=== PATIENT | male | born 1955 | race Caucasian/White ===

== ENCOUNTER 2016-06-09 08:39 | Emergency (ER) | payer MEDICAID ==
[2016-06-09 08:45] VITALS: BP 130/90; PULSE 88; RESP 20; TEMP 97.7; O2SAT 94
--- NOTE | 2016-06-09 09:14 | EDPHY ---
H & P Time Seen by Provider: 06/09/16 08:41 HPI/ROS: CHIEF COMPLAINT: right shoulder pain HISTORY OF PRESENT ILLNESS: 60-year-old male presents complaining of right shoulder pain times 10 days. Patient was loading firewood into his truck 10 days ago when he twisted and felt pain in his right shoulder radiating the right side of his neck to his ear. Patient reports pain is worse with movement , constant and he describes as a burning sensation. Patient denies numbness or tingling in his arm, no chest pain or shortness of breath, no blurred vision, dizziness, fevers or chills. No recent cough or cold. Patient reports he has been taking aspirin without relief. REVIEW OF SYSTEMS: A comprehensive 10 point review of systems is otherwise negative aside from elements mentioned in the history of present illness. Smoking Status: Current every day smoker Physical Exam: Physical Exam Gen: Alert and Oriented, NAD HEENT: PERRL, moist mucous membranes, bilateral TMs normal NECK: no meningismus, full range of motion CV: regular rate and regular rhythm PULM: CTAB, no wheezes ABDOMEN: soft, non tender to palpation, BS present BACK: Right-sided trapezius tenderness to palpation, right-sided sternocleidomastoid tenderness to palpation. No CVA tenderness NEURO: Neurologically grossly intact EXTREMITIES: normal appearing, right arm with full active forward flexion, abduction, 5/5 strength, 2+ radial pulses SKIN: no rash or break in skin on exposed skin PSYCH: answers questions appropriately. Constitutional: Initial Vital Signs Temperature (C) 36.5 C 06/09/16 08:42 Heart Rate 88 06/09/16 08:42 Respiratory Rate 20 06/09/16 08:42 Blood Pressure 130/90 H 06/09/16 08:42 O2 Sat (%) 94 06/09/16 08:42 O2 Delivery Mode Room Air Allergies/Adverse Reactions: No Known Allergies Allergy (Verified 06/09/16 08:41) Home Medications: Medication Instructions Recorded Advair 06/21/13 Lisinopril 06/21/13 Spiriva Inhaler (RX) 06/21/13 Methocarbamol [Robaxin-750] 750 - 1,500 mg PO QID PRN #20 06/09/16 tablet MDM/Departure - Depart Disposition: Home, Routine, Self-Care Clinical Impression: Trapezius muscle spasm, Sternocleidomastoid muscle tenderness Condition: Good Instructions: Muscle Spasm (ED) Additional Instructions: Rest, ice or heat whichever feels better, elevate, take 600mg of ibuprofen every 8 hours with food for 3-5 days as needed for pain and swelling. Take methocarbamol as prescribed as needed for muscle spasms. Return to the emergency department for any numbness, tingling, discoloration of you limb or other concerns. Follow-up with your primary care doctor in 3-5 days for symptoms that are not improving. Prescriptions: Methocarbamol [Robaxin-750] 750 - 1,500 mg PO QID PRN #20 tablet PRN Reason: Spasms Referrals: Beck Romero MD [Primary Care Provider] - As per Instructions
== END 2016-06-09 09:21 | disposition home or self-care (01) ==
DX: M62.838 Other muscle spasm (principal); M54.2 Cervicalgia; F17.200 Nicotine dependence, unspecified, uncomplicated

== ENCOUNTER 2016-09-11 14:14 | Inpatient (IN) | payer MEDICAID ==
--- NOTE | 2016-09-11 14:39 | EDPHY ---
H & P Time Seen by Provider: 09/11/16 14:39 HPI/ROS: CHIEF COMPLAINT: Right chest pain HISTORY OF PRESENT ILLNESS: This 61-year-old man fell last night at 8:00 p.m.. He tripped in the kitchen because it was dark and landed on his right side on his wood stove. He presents today with right-sided chest pain started immediately after the fall. It does not radiate but is much worse with breathing. It is associated with shortness of breath and the pain is moderate to severe. REVIEW OF SYSTEMS: Eye: no change in vision ENT: no sore throat Cardiac: HPI, no syncope Pulmonary: HPI, chronic cough, unchanged Abdomen: no vomiting, diarrhea, abdominal pain Musculoskeletal: no back pain or neck pain Skin: Right arm abrasion Neuro: no headache Constitutional: no fever : no urinary symptoms A comprehensive 10 point review of systems is otherwise negative aside from elements mentioned in the history of present illness. PAST MEDICAL HISTORY: Includes COPD and hypertension, tonsillectomy. Tetanus up-to-date. Social history: Tobacco smoker, last used yesterday. General Appearance: Alert and conversant, cooperative. Eyes: No scleral icterus. ENT, Mouth: Normal mucous membranes. Respiratory: Patient is splinting with decreased breath sounds on the right side and palpable crepitus in the mid axillary line from the armpit down to the nipple line. Cardiovascular: Regular rate and rhythm. Gastrointestinal: Abdomen is soft and non tender. Specifically nontender over the liver. Neurological: Alert and oriented x3. Normally conversant. Face symmetric, normal movement and sensation in all extremities. Skin: Right arm abrasion but no lacerations. Musculoskeletal: No peripheral edema and no joint swelling. Psychiatric: Not agitated. Emergency Department course/MDM: Clinical suspicion high for pneumothorax. Oxygen saturation noted at 81%. He is immediately placed on supplemental oxygen nasal cannula to get him into the low 90s. Plan for fentanyl 100 mcg IV, chest x-ray. 1535: Sodium noted at 1:18 a.m., admit to trauma service, admitting trauma surgeon will arrange medical consult per Elmo. Admitting surgeon aware right lung consolidation, possible mass versus pulmonary contusion. Smoking Status: Current every day smoker Constitutional: Initial Vital Signs Temperature (C) 36.4 C 09/11/16 14:15 Heart Rate 97 09/11/16 14:15 Respiratory Rate 22 H 09/11/16 14:15 Blood Pressure 146/93 H 09/11/16 14:15 O2 Sat (%) 81 L 09/11/16 14:15 O2 Delivery Mode Nasal Cannula O2 (L/minute) 3 Allergies/Adverse Reactions: No Known Allergies Allergy (Verified 09/11/16 14:23) Home Medications: Medication Instructions Recorded Albuterol [Proventil Inhaler HFA 1 - 2 puffs IH Q4H PRN 09/11/16 (*)] Fluticasone/Salmeter 250/50Mcg 1 puffs IH BID 09/11/16 [Advair 250/50 (*)] Ibuprofen [Motrin (*)] 200 - 400 mg PO DAILY PRN 09/11/16 Lisinopril/Hctz 20/12.5MG 1 ea PO DAILY 09/11/16 [Zestoretic/Prinzide 20/12.5MG (*)] Tiotropium Inhaler [Spiriva 18 mcg IH DAILY 09/11/16 Handihaler] Medical Decision Making - Diagnostics Imaging Results: Imaging Impressions Chest X-Ray 09/11/16 14:34 Impression: Multiple displaced right rib fractures 4 through 9, as above. Small pneumothorax and small right pleural effusion. Subcutaneous emphysema. Probable pulmonary contusion right lower lobe. Results discussed with Dr. Shoaib Flor at 1500 hours on September 11, 2016. Chest x-ray discussed with Milady and personally interpreted shows fractures of ribs 4-9 on the right side with large volume subcutaneous air and pulmonary contusion. Imaging: Discussed imaging studies w/ commutator operator Radiologist Differential Diagnosis: Differential for right-sided chest trauma considered including but not limited to pneumothorax, hemothorax, rib fracture, chest wall contusion. Consult/Admit Bed Type: [place] [address] Critical Care Time: Critical care time spent by me, Dr. Flor, exclusively with the care of this patient was 35 minutes, exclusive of PA or LOG PEELER time and exclusive of separate procedures. The organ system at risk was pulmonary and I ordered supplementary oxygen, diagnostic imaging, discussion with trauma surgeon, IV pain medication; to stabilize the patient and prevent worsening of the patient's condition. - Data Points Laboratory Results: Laboratory Results 09/11/16 14:35 09/11/16 14:35 09/11/16 09/11/16 14:35 14:35 WBC 8.39 10^3/uL 10^3/uL (3.80-9.50) RBC 5.14 10^6/uL 10^6/uL (4.40-6.38) Hgb 16.8 g/dL g/dL (13.7-17.5) Hct 46.0 % % (40.0-51.0) MCV 89.5 fL fL (81.5-99.8) MCH 32.7 pg pg (27.9-34.1) MCHC 36.5 g/dL g/dL (32.4-36.7) RDW 12.9 % % (11.5-15.2) Plt Count 168 10^3/uL 10^3/uL (150-400) MPV 8.7 fL fL (8.7-11.7) Neut % (Auto) 84.9 % H % (39.3-74.2) Lymph % (Auto) 8.2 % L % (15.0-45.0) [place] % (Auto) 6.0 % % (4.5-13.0) Eos % (Auto) 0.0 % L % (0.6-7.6) Baso % (Auto) 0.1 % L % (0.3-1.7) Nucleat RBC Rel Count 0.0 % % (0.0-0.2) Absolute Neuts (auto) 7.12 10^3/uL H 10^3/uL (1.70-6.50) Absolute Lymphs (auto) 0.69 10^3/uL L 10^3/uL (1.00-3.00) Absolute Monos (auto) 0.50 10^3/uL 10^3/uL (0.30-0.80) Absolute Eos (auto) 0.00 10^3/uL L 10^3/uL (0.03-0.40) Absolute Basos (auto) 0.01 10^3/uL L 10^3/uL (0.02-0.10) Absolute Nucleated RBC 0.00 10^3/uL 10^3/uL (0-0.01) Immature Gran % 0.8 % % (0.0-1.1) Immature Gran # 0.07 10^3/uL 10^3/uL (0.00-0.10) Sodium 118 mEq/L L* mEq/L (134-144) Potassium 4.8 mEq/L mEq/L (3.5-5.2) Chloride 80 mEq/L L mEq/L (97-110) Carbon Dioxide 26 mEq/l mEq/l (22-31) Anion Gap 12 mEq/L mEq/L (8-16) BUN 17 mg/dL mg/dL (7-23) Creatinine 0.8 mg/dL mg/dL (0.7-1.3) Estimated GFR > 60 Glucose 94 mg/dL mg/dL (70-100) Calcium 9.7 mg/dL mg/dL (8.5-10.4) Medications Given: Discontinued Medications Fentanyl (Sublimaze) 100 mcg IVP EDNOW ONE Stop: 09/11/16 14:49 Last Admin: 09/11/16 15:00 Dose: 100 mcg Ondansetron HCl (Zofran) 4 mg IVP EDNOW ONE Stop: 09/11/16 14:49 Last Admin: 09/11/16 15:00 Dose: 4 mg Departure - Departure Disposition: [facility] [place] [facility] Acute Clinical Impression: Hyponatremia Ribs, multiple fractures Qualifiers: Encounter type: initial encounter Fracture type: closed Laterality: right Qualified Code(s): S22.41XA - Multiple fractures of ribs, right side, initial encounter for closed fracture Right pulmonary contusion Qualifiers: Encounter type: initial encounter Qualified Code(s): S27.321A - Contusion of lung, unilateral, initial encounter Condition: Serious
[2016-09-11] MEDS ORDERED: fentaNYL 100 MCG/2 ML INJ IVP ONE (14:48)
[2016-09-11] MEDS ORDERED: ONDANSETRON 4 MG/2 ML VIAL IVP ONE (14:48)
[2016-09-11 14:52] LABS: % IMMATURE GRANULYOCYTES 0.8 % (0.0-1.1); ABSOLUTE IMMATURE GRANULOCYTES 0.07 10^3/uL (0.00-0.10); ADD DIFF? NO; ADD MORPH? NO; ADD SCAN? NO; ATYPICAL LYMPHOCYTE FLAG 0 (0-99); FRAGMENT RBC FLAG 0 (0-99); HEMOGLOBIN 16.8 g/dL (13.7-17.5); LEFT SHIFT FLG 0 (0-99); LIPEMIA HEMOLYSIS FLAG 90 (0-99); MEAN CELL HEMOGLOBIN 32.7 pg (27.9-34.1); MEAN CELL HEMOGLOBIN CONCENTR. 36.5 g/dL (32.4-36.7); MEAN CELL VOLUME 89.5 fL (81.5-99.8); MEAN PLATELET VOLUME 8.7 fL (8.7-11.7); PLATELET CLUMPS FLAG 10 (0-99); PLATELET COUNT 168 10^3/uL (150-400); RED BLOOD CELL COUNT 5.14 10^6/uL (4.40-6.38); RED CELL DISTRIBUTION WIDTH 12.9 % (11.5-15.2)
[2016-09-11 15:22] LABS: ANION GAP 12 mEq/L (8-16); CALCIUM 9.7 mg/dL (8.5-10.4); CARBON DIOXIDE 26 mEq/l (22-31); CHLORIDE 80 mEq/L (97-110); CREATININE 0.8 mg/dL (0.7-1.3); GLOMERULAR FILTRATION RATE > 60; GLUCOSE 94 mg/dL (70-100); POTASSIUM 4.8 mEq/L (3.5-5.2)
[2016-09-11 15:27] LABS: SODIUM 118 mEq/L (134-144)
[2016-09-11] MEDS ORDERED: ONDANSETRON 4 MG/2 ML VIAL IVP PRN (15:42)
[2016-09-11] MEDS ORDERED: ONDANSETRON DISINTEGRATING 4 MG TAB PO PRN (15:42)
--- NOTE | 2016-09-11 15:42 | PDCONSULT ---
Head Butler Note: Trauma consult requested by Dr. Flor. 61 y/o male fell at home last night and presented to the ED this afternoon with hypoxemia and mulitple rib fractures. He reports tripping and falling at home, landing on his right lateral chest against a cast iron stove. He denies LOC and slept off and on last night until 11:30 when he was able to get help from a neighbor who brought him to the ED. He was noted to be hypoxemic with O2 sats of 81 % He was seen and evaluated with plain films of the chest and was found to have multiple right rib fractures and a probable pulmonary contusion. PMH: heavy tobacco use >40 years meds: Albuterol inh, Spiriva inh NKDA SH: lives in a cabin in [place] ROS: denies LOC, headache, visual disturbances, weakness/paresthesias + right chest pain/ denies hemoptysis FH: NC PE: thin male appearing older than his stated age HEENT: NCAT, P2RRLA, TM-clear R/impacted cerumen L trachea midline, no midline cervical or thoracic spine tenderness chest: right lateral subcut crepitance CVS: RRR w/out murmur, rub abd: soft/non-tender pelvis: stable to A/L compression rectal: not performed ext: FROM without tenderness or deformity neuro: Ox3, no focal motor/sensory defecits, gait testing not performed CXR: multiple fractures right lateral ribs 4-8 with subcutaneous air/small effusion/minimal pneumothorax RLL density c/w contusion, but cannot exclude neoplasm Na+ 118 Imp: s/p fall with right lateral chest trauma 20 hours prior to arrival multiple right rib fractures with hemo-pneumothorax hyponatremia RLL lung mass vs. contusion hx heavy tobacco use Rec: CT thorax with contrast Admit to the Trauma Service with Hospitalist consult monitor for worsening pneumo/may need closed tube thoracostomy consider percutaneous lung bx. if CT confirms mass RLL IV NS/central pulse oximetry S MD Elmo, FACS
[2016-09-11] MEDS ORDERED: HYDROmorphONE/DILAUDID 1 MG/ML SYR ONE (15:55)
[2016-09-11] MEDS ORDERED: ALBUTEROL 60 PUFFS/8 GM MDI IH PRN (15:56)
[2016-09-11] MEDS ORDERED: IOPAMIDOL (ISOVUE-300) 100 ML BTL IV ONE (15:57)
[2016-09-11] MEDS: HYDROmorphONE/DILAUDID 1 MG/ML SYR IVP PRN (16:00)
[2016-09-11] MEDS: NS 1,000 ML IV SCH (16:00)
[2016-09-11 16:38] LABS: ALANINE AMINOTRANSFERASE 59 IU/L (21-72); ALBUMIN 4.4 g/dL (3.5-5.0); ALKALINE PHOSPHATASE 74 IU/L (38-126); ANION GAP 9 mEq/L (8-16); ASPARTATE AMINOTRANSFERASE 101 IU/L (17-59); BILIRUBIN,TOTAL 1.7 mg/dL (0.1-1.4); CALCIUM 9.6 mg/dL (8.5-10.4); CARBON DIOXIDE 28 mEq/l (22-31); CHLORIDE 82 mEq/L (97-110); CREATININE 0.8 mg/dL (0.7-1.3); GLOMERULAR FILTRATION RATE > 60; GLUCOSE 98 mg/dL (70-100); POTASSIUM 4.7 mEq/L (3.5-5.2); TOTAL PROTEIN 7.4 g/dL (6.3-8.2)
[2016-09-11 16:43] LABS: SODIUM 119 mEq/L (134-144)
--- NOTE | 2016-09-11 18:10 | GCON ---
[f rep st] CONSULTATION HOSPITALIST CONSULTATION DATE OF CONSULTATION: 09/11/2016 REFERRING PHYSICIAN: Jono Borrego MD REASON FOR CONSULTATION: Hyponatremia. HISTORY OF PRESENT ILLNESS: This is a 61-year-old male who lives in a cabin [place] [facility] and sustained a mechanical fall last night, where he tripped and landed on the edge of a stove with his right chest. He came to the emergency department today due to persistent pain over his right chest. It is described as 8 to 10 out of 10, sharp pain over his right ribs. It is worse with coughing and taking deep breaths. The patient denies any past history of hyponatremia. He denies any copious fluid ingestion. He endorses a regular diet up until today, when he just did not have an appetite. He denies any fevers, chills, or weight loss. He has a 40+ pack-year smoking history and tells me he quit smoking today. PAST MEDICAL HISTORY: COPD and hypertension. PAST SURGICAL HISTORY: Denies. MEDICATIONS: Spiriva, lisinopril/hydrochlorothiazide, Motrin, Advair, albuterol. ALLERGIES: No known drug allergies. SOCIAL HISTORY: The patient lives independently. He has a 40+ pack-year smoking history. He denies any alcohol or illicit drug use. FAMILY HISTORY: Reviewed and noncontributory. REVIEW OF SYSTEMS: Comprehensive 10-point review of systems was done and is negative, except for as mentioned in the HPI. PHYSICAL EXAM: VITAL SIGNS: Blood pressure 105/76, pulse of 89, respiratory rate 20, O2 sat 97% on 3 L, temperature afebrile. GENERAL: No acute distress. HEENT: Head: Normocephalic, atraumatic. Eyes: PERRLA. Sclerae anicteric. Mouth: Moist mucous membranes. NECK: Supple. No lymphadenopathy. CARDIOVASCULAR: S1, S2. No JVD. No lower extremity edema. PULMONARY: Lungs are clear with diminished breath sounds bilaterally. There are no wheezes or rales. CHEST: There is tenderness to palpation over the right lateral chest at the midaxillary line. There is also some crepitus over the right lateral chest. ABDOMEN: Soft, nontender, nondistended. No guarding or rebound tenderness. Normoactive bowel sounds. EXTREMITIES: No clubbing or cyanosis. NEURO: Cranial nerves 2-12 grossly intact. No focal motor or sensory deficits. SKIN: Clear. No rashes. LABORATORY DATA: WBC is 8.39, hemoglobin 16.8, hematocrit 46, platelets 168. Sodium 118, potassium 4.8, chloride 80, CO2 26, BUN 17, creatinine 0.8, glucose 94. Repeat chemistry is currently pending. Chest x-ray, which I visualized and personally interpreted, revealed multiple displaced rib fractures as well as some subcutaneous emphysema with opacification in the right lower lobe. CT has been done and is currently pending. Preliminary read by me shows suspicious opacity in the right lower lobe as well as a pneumothorax. ASSESSMENT AND PLAN: This is a 61-year-old male status post slip and fall who has been admitted by the trauma service due to multiple rib fractures, who I have been asked to see due to: 1. Hyponatremia that appears to be asymptomatic in a patient who appears to be euvolemic to hypovolemic with possible malignancy in the right lower lobe. Plan : The patient will be admitted to the medical-surgical floor, where we will carefully monitor his serum sodium and place him on seizure precautions. We will obtain a urine sodium and urine osmolality as well as a TSH. For now, he will be fluid restricted to 1.5 L per day. Will hold home dose of HCTZ. 2. Suspicious lesion in the right lower lobe in the setting of long-time tobacco use, which could represent a pulmonary contusion from his recent injury versus malignancy. Plan: For now, we will defer a biopsy. This should be discussed with the patient prior to discharge. I have not yet notified the patient of this finding. 3. Tobacco abuse. Plan: We will order nicotine replacement while in the hospital. 4. History of hypertension Plan: Hold HCTZ and continue lisinopril Thank you for allowing me to participate in the care of this patient. Hospital Medicine will continue to follow along with you. /[id number]/MODL MTDD
[2016-09-11] MEDS: HYDROCODONE/APAP 5/325 TAB PO PRN (19:23)
[2016-09-11] MEDS: ALBUTEROL 60 PUFFS/8 GM MDI IH PRN ×2 (19:27→23:31)
[2016-09-11] MEDS: FLUTICASONE/SALMETER 250/50MCG DISKUS IH SCH (19:27)
[2016-09-11] MEDS: IBUPROFEN 600 MG TAB PO SCH (21:37)
[2016-09-12] MEDS: HYDROCODONE/APAP 5/325 TAB PO PRN ×4 (01:26→22:02)
[2016-09-12 01:49] LABS: ANION GAP 4 mEq/L (8-16); CALCIUM 8.7 mg/dL (8.5-10.4); CARBON DIOXIDE 28 mEq/l (22-31); CHLORIDE 88 mEq/L (97-110); CREATININE 0.8 mg/dL (0.7-1.3); GLOMERULAR FILTRATION RATE > 60; GLUCOSE 117 mg/dL (70-100); POTASSIUM 4.5 mEq/L (3.5-5.2); SODIUM 120 mEq/L (134-144)
[2016-09-12] MEDS: NS 1,000 ML IV SCH ×3 (02:16→22:07)
[2016-09-12] MEDS: IBUPROFEN 600 MG TAB PO SCH ×3 (06:04→21:07)
[2016-09-12] MEDS ORDERED: IBUPROFEN 600 MG TAB PO PRN (08:16)
[2016-09-12] MEDS: ALBUTEROL 60 PUFFS/8 GM MDI IH PRN (08:35)
[2016-09-12] MEDS: FLUTICASONE/SALMETER 250/50MCG DISKUS IH SCH ×2 (08:35→22:14)
[2016-09-12] MEDS: TIOTROPIUM INHALER 18 MCG/DOSE 5 DOSE/MDI IH SCH (08:35)
[2016-09-12 08:45] LABS: ANION GAP 6 mEq/L (8-16); CALCIUM 8.8 mg/dL (8.5-10.4); CARBON DIOXIDE 27 mEq/l (22-31); CHLORIDE 89 mEq/L (97-110); CREATININE 0.9 mg/dL (0.7-1.3); GLOMERULAR FILTRATION RATE > 60; GLUCOSE 105 mg/dL (70-100); POTASSIUM 4.4 mEq/L (3.5-5.2); SODIUM 122 mEq/L (134-144)
[2016-09-12] MEDS ORDERED: LISINOPRIL 20 MG TAB PO SCH (09:00)
[2016-09-12] MEDS: ENOXAPARIN 40 MG/0.4 ML SYR SC SCH (09:04)
[2016-09-12] MEDS: CYCLOBENZAPRINE 10 MG TAB PO SCH ×3 (09:04→21:07)
--- NOTE | 2016-09-12 09:05 | TRAUMAPN ---
- Problem/Surgery Performed (1) Subcutaneous emphysema due to trauma Qualifiers: Encounter type: E Assessment/Plan: 61yo M s/p mech fall c R sided rib fx c associated contusion vs mass and hyponatremia Neuro: REESE, pain controlled but not great. Have increased dosage of ibuprofen, added muscle relaxer. Pulm: Has weaned down to 3L NC from 4. CXR this AM pending. Has R sided crepitus to palpation, expiratory wheezes present with poor inspiratory effort overall. Splints with coughing which is why pain control has been altered. Needs aggressive pulm toilet which I discussed again this AM. Home inhalers ordered. CV: HDS Abd: soft, nondistended, tolerating reg diet Renal: voiding, UOP appropriate, Cr stable Lytes: Na 120 from 119, on NS. Appreciate IM assistance with management Dispo: pain control, may need tube if CXR looks worse. Slowly correcting hypoNa - Subjective: Feeling well, still having significant R sided chest pain Objective: Vital Signs Temp Pulse Resp BP Pulse Ox 36.7 C 78 14 118/80 95 09/12/16 07:20 09/12/16 08:48 09/12/16 08:48 09/12/16 07:20 09/12/16 08:48 Laboratory Results 09/12/16 08:23 09/11/16 09/12/16 09/13/16 05:59 05:59 05:59 Intake Total 2830 Output Total 300 200 Balance 2530 -200 - C-Spine Clearance Cervical Spine Cleared: Yes Physical Exam - Physical Exam General Appearance: alert, no apparent distress EENT: PERRL/EOMI Neck: non-tender, full range of motion Respiratory: other (R sided crepitus, expiratory wheezes with poor effort. ) Cardiac/Chest: normal peripheral pulses, regular rate, rhythm Abdomen: normal bowel sounds, non-tender Extremities: normal range of motion, non-tender Neuro/Psych: no motor/sensory deficits, alert
[2016-09-12 12:34] LABS: % IMMATURE GRANULYOCYTES 0.6 % (0.0-1.1); ABSOLUTE IMMATURE GRANULOCYTES 0.04 10^3/uL (0.00-0.10); ADD DIFF? NO; ADD MORPH? NO; ADD SCAN? NO; ATYPICAL LYMPHOCYTE FLAG 0 (0-99); FRAGMENT RBC FLAG 0 (0-99); HEMATOCRIT 40.8 % (40.0-51.0); HEMOGLOBIN 14.9 g/dL (13.7-17.5); LEFT SHIFT FLG 0 (0-99); LIPEMIA HEMOLYSIS FLAG 90 (0-99); MEAN CELL HEMOGLOBIN 32.7 pg (27.9-34.1); MEAN CELL HEMOGLOBIN CONCENTR. 36.5 g/dL (32.4-36.7); MEAN CELL VOLUME 89.5 fL (81.5-99.8); MEAN PLATELET VOLUME 8.8 fL (8.7-11.7); PLATELET CLUMPS FLAG 0 (0-99); PLATELET COUNT 120 10^3/uL (150-400); RED BLOOD CELL COUNT 4.56 10^6/uL (4.40-6.38); RED CELL DISTRIBUTION WIDTH 13.1 % (11.5-15.2)
[2016-09-12 12:58] LABS: CALCIUM 8.5 mg/dL (8.5-10.4); CARBON DIOXIDE 28 mEq/l (22-31); CHLORIDE 89 mEq/L (97-110); CREATININE 0.8 mg/dL (0.7-1.3); GLOMERULAR FILTRATION RATE > 60; GLUCOSE 136 mg/dL (70-100); SODIUM 120 mEq/L (134-144)
[2016-09-12 13:14] LABS: ANION GAP 3 mEq/L (8-16); POTASSIUM 4.3 mEq/L (3.5-5.2)
[2016-09-12] MEDS ORDERED: LORazepam 2 MG/ML INJ IVP PRN (16:20)
[2016-09-12] MEDS ORDERED: LORazepam 1 MG TAB PO PRN (16:20)
--- NOTE | 2016-09-12 16:51 | HOSPPROG ---
Hospitalist Progress Note Assessment/Plan: Assessment: 61-year-old male presents with acute traumatic fall resulting in right-sided rib fractures, right hydro pneumothorax right lung contusion verses new mass complicated by acute hyponatremia Plan: 1. Hyponatremia. Acute, severe, unclear baseline, most likely secondary to hypovolemia with a urine sodium level of 6, serum chloride level of 89, no appreciable improvement by holding IV fluids and fluid restriction - patient's baseline intake this is poor, his diet of solid foods is low, drinks a combination of coffee, glacier water, beer a daily basis, and he is also on an ELMER-inhibitor/thiazide diuretic, most likely resulting in hypovolemia on presentation - discussed with RN, patient has been off of IV fluids most of the afternoon, will reinitiate normal saline at 150 cc/hour and repeat his serum sodium level at 8:00 p.m. -if serum sodium level is increasing at safe rate, would recommend continuing normal saline 150 an hour - his serum sodium level is increasing at an unsafe rate, would recommend adjusting fluids to D5 half-normal saline and continuing it to repeat serum sodium levels throughout the night - if his serum sodium level is decreasing, would recommend discontinuing IV fluids, placing on a 1 L per day fluid restriction, repeating serum sodium level in a.m. and rechecking a urine sodium level tomorrow 2. Possible new lung mass. Repeat chest x-ray demonstrates a persistent area of possible lung mass in the right lower lobe or contusion - discussed with patient, advised him that we should perform chest CT once his traumatic hydro pneumothorax has completely stabilized, prior to discharge - patient is in agreement that he would like for this to be pursued, we did not discuss potential biopsy given that it is not entirely clear whether patient does have a mass 3. Rib fracture. Acute, traumatic, right-sided, pain control is currently adequate per patient Trauma Service will remain the primary service for this patient, hospital Medicine will continue to consult for the issues outlined above. Subjective: Counseled the patient and his friends regarding his chest imaging, explanation of findings, recommendations for follow-up chest CT Objective: Vital Signs Temp Pulse Resp BP Pulse Ox 36.5 C 81 18 113/79 96 09/12/16 11:10 09/12/16 11:10 09/12/16 11:10 09/12/16 11:10 09/12/16 14:09 Laboratory Results 09/12/16 12:20 09/12/16 12:20 09/11/16 09/12/16 09/13/16 05:59 05:59 05:59 Intake Total 2830 Output Total 300 400 Balance 2530 -400 - Time Spent With Patient Time Spent with Patient: greater than 35 minutes Time Spent with Patient: Greater than 35 minutes spent on this patients care, greater than 50% of time spent counseling, educating, and coordinating care regarding the above mentioned plan. - Physical Exam Constitutional: no apparent distress, not in pain, other ( aged.), No uncomfortable Cardiovascular: regular rate and rhythym, no murmur, rub, or gallop Respiratory: reduced air movement ( Right base), expiratory wheeze ( late on expiration), No bronchial breath sounds, No respiratory distress Gastrointestinal: normoactive bowel sounds, soft, non-tender abdomen, no palpable masses Neurologic: AAOx3 Psychiatric: interacting appropriately, not anxious, not encephalopathic, thought process linear ICD10 Worksheet Patient Problems: Problems Problem Status Onset Ribs, multiple fractures Acute Right pulmonary contusion Acute Hyponatremia Acute Subcutaneous emphysema due to trauma Acute
[2016-09-12 21:25] LABS: ANION GAP 3 mEq/L (8-16); CALCIUM 8.3 mg/dL (8.5-10.4); CARBON DIOXIDE 29 mEq/l (22-31); CHLORIDE 90 mEq/L (97-110); CREATININE 0.7 mg/dL (0.7-1.3); GLOMERULAR FILTRATION RATE > 60; GLUCOSE 94 mg/dL (70-100); POTASSIUM 4.6 mEq/L (3.5-5.2); SODIUM 122 mEq/L (134-144)
[2016-09-13] MEDS: IBUPROFEN 600 MG TAB PO SCH ×3 (04:46→21:15)
[2016-09-13] MEDS: HYDROCODONE/APAP 5/325 TAB PO PRN ×2 (04:46→11:22)
[2016-09-13] MEDS: HYDROmorphONE/DILAUDID 1 MG/ML SYR IVP PRN ×2 (04:51→09:24)
[2016-09-13 05:23] LABS: % IMMATURE GRANULYOCYTES 0.4 % (0.0-1.1); ABSOLUTE IMMATURE GRANULOCYTES 0.02 10^3/uL (0.00-0.10); ADD DIFF? NO; ADD MORPH? NO; ADD SCAN? NO; ATYPICAL LYMPHOCYTE FLAG 0 (0-99); FRAGMENT RBC FLAG 0 (0-99); HEMOGLOBIN 12.8 g/dL (13.7-17.5); LEFT SHIFT FLG 0 (0-99); LIPEMIA HEMOLYSIS FLAG 90 (0-99); MEAN CELL HEMOGLOBIN 32.1 pg (27.9-34.1); MEAN CELL HEMOGLOBIN CONCENTR. 34.6 g/dL (32.4-36.7); MEAN CELL VOLUME 92.7 fL (81.5-99.8); PLATELET CLUMPS FLAG 0 (0-99); PLATELET COUNT 121 10^3/uL (150-400); RED BLOOD CELL COUNT 3.99 10^6/uL (4.40-6.38); RED CELL DISTRIBUTION WIDTH 13.3 % (11.5-15.2)
[2016-09-13 06:07] LABS: ANION GAP 3 mEq/L (8-16); CALCIUM 8.1 mg/dL (8.5-10.4); CARBON DIOXIDE 27 mEq/l (22-31); CHLORIDE 94 mEq/L (97-110); CREATININE 0.6 mg/dL (0.7-1.3); GLOMERULAR FILTRATION RATE > 60; GLUCOSE 79 mg/dL (70-100); MAGNESIUM 1.7 mg/dL (1.6-2.3); POTASSIUM 4.5 mEq/L (3.5-5.2); SODIUM 124 mEq/L (134-144)
[2016-09-13] MEDS: TIOTROPIUM INHALER 18 MCG/DOSE 5 DOSE/MDI IH SCH (08:53)
[2016-09-13] MEDS: FLUTICASONE/SALMETER 250/50MCG DISKUS IH SCH ×2 (08:54→21:26)
[2016-09-13] MEDS: CYCLOBENZAPRINE 10 MG TAB PO SCH ×3 (09:29→21:14)
[2016-09-13] MEDS: ENOXAPARIN 40 MG/0.4 ML SYR SC SCH (09:29)
--- NOTE | 2016-09-13 10:38 | SOAPPROG ---
SOAP Progress Note Assessment/Plan: Assessment: 61yo male s/p fall resulting in right sided rib fractures mild right sided CP, walked around this AM, unable to return home as lives alone in [place] PE awake alert, Right basilar crackles Ht RRR CXR reviewed -- small [id number], lung mass Plan: emphasized importance of follow up for lung mass, Dr Carver explained to patient ok for D/C to SNF from trauma standpoint, please call me if trauma is admitting and ok with medicine for D/C then I will d/c patient to SNF [facility] [phone] 09/13/16 10:32 Objective: Vital Signs Temp Pulse Resp BP Pulse Ox 36.4 C 91 14 127/78 H 94 09/13/16 08:00 09/13/16 08:57 09/13/16 08:57 09/13/16 08:00 09/13/16 08:57 Laboratory Results 09/13/16 05:05 09/13/16 05:05 09/12/16 09/13/16 09/14/16 05:59 05:59 05:59 Intake Total 2830 3100 400 Output Total 300 950 230 Balance 2530 2150 170 ICD10 Worksheet Patient Problems: Problems Problem Status Onset Hyponatremia Acute Ribs, multiple fractures Acute Right pulmonary contusion Acute Subcutaneous emphysema due to trauma Acute
[2016-09-13] MEDS: ALBUTEROL 60 PUFFS/8 GM MDI IH PRN ×2 (11:19→21:26)
[2016-09-13] MEDS: NS 1,000 ML IV SCH ×2 (11:20→21:15)
--- NOTE | 2016-09-13 12:24 | HOSPPROG ---
Hospitalist Progress Note Assessment/Plan: # hyponatremia - seems combination of SIADH and hypovolemia - Q8 Na's today # possible R lung mass - needs close outpt f/u # acute R sided rib fx's - pain control; cont IS, flutter valve # anemia - lower today, follow # acute hypoxic resp failure d/t rib fx's, splinting # COPD, chronic ## CXR personally reviewed chart reviewed Subjective: ongoing R sided CP Objective: Vital Signs Temp Pulse Resp BP Pulse Ox 36.4 C 83 20 123/75 H 95 09/13/16 11:07 09/13/16 11:07 09/13/16 11:07 09/13/16 11:07 09/13/16 11:07 Laboratory Results 09/13/16 05:05 09/13/16 05:05 09/12/16 09/13/16 09/14/16 05:59 05:59 05:59 Intake Total 2830 3100 700 Output Total 300 950 230 Balance 2530 2150 470 - Physical Exam Constitutional: unkempt Cardiovascular: regular rate and rhythym, no murmur, rub, or gallop Respiratory: no respiratory distress, other (decreased R sided BS, no rales/ rhonchi; R sided crepitus) Gastrointestinal: normoactive bowel sounds, soft, non-tender abdomen ICD10 Worksheet Patient Problems: Problems Problem Status Onset Ribs, multiple fractures Acute Right pulmonary contusion Acute Hyponatremia Acute Subcutaneous emphysema due to trauma Acute
[2016-09-13 13:33] LABS: ANION GAP 3 mEq/L (8-16); CALCIUM 8.3 mg/dL (8.5-10.4); CARBON DIOXIDE 26 mEq/l (22-31); CHLORIDE 95 mEq/L (97-110); CREATININE 0.6 mg/dL (0.7-1.3); GLOMERULAR FILTRATION RATE > 60; GLUCOSE 84 mg/dL (70-100); POTASSIUM 4.9 mEq/L (3.5-5.2); SODIUM 124 mEq/L (134-144)
[2016-09-13] MEDS: LIDOCAINE 5% 1 EA PATCH TD SCH (13:38)
[2016-09-13] MEDS: ACETAMINOPHEN 500 MG TAB PO SCH ×2 (13:40→21:14)
--- NOTE | 2016-09-13 16:42 | SOAPPROG ---
SOAP Progress Note Assessment/Plan: Assessment: 61-year-old male with the multiple rib fractures after a fall / also a right lower lobe lung mass suspicious for carcinoma Chest x-ray today suggest is somewhat enlarging right pleural effusion which could be consistent with the hemothorax risks and options fully discussed with the patient Plan: follow-up chest x-ray in the a.m. / possible need for drainage if increasing 09/13/16 16:40 Objective: Vital Signs Temp Pulse Resp BP Pulse Ox 36.4 C 83 20 123/75 H 87 L 09/13/16 11:07 09/13/16 11:07 09/13/16 11:07 09/13/16 11:07 09/13/16 11:43 Laboratory Results 09/13/16 05:05 09/13/16 12:30 09/12/16 09/13/16 09/14/16 05:59 05:59 05:59 Intake Total 2830 3100 700 Output Total 300 950 470 Balance 2530 2150 230 ICD10 Worksheet Patient Problems: Problems Problem Status Onset Hyponatremia Acute Ribs, multiple fractures Acute Right pulmonary contusion Acute Subcutaneous emphysema due to trauma Acute
[2016-09-13] MEDS: oxyCODONE IR 5 MG TAB PO PRN ×2 (18:11→23:05)
[2016-09-13 18:27] LABS: ANION GAP 3 mEq/L (8-16); CALCIUM 8.1 mg/dL (8.5-10.4); CARBON DIOXIDE 27 mEq/l (22-31); CHLORIDE 95 mEq/L (97-110); CREATININE 0.6 mg/dL (0.7-1.3); GLOMERULAR FILTRATION RATE > 60; GLUCOSE 80 mg/dL (70-100); POTASSIUM 4.7 mEq/L (3.5-5.2); SODIUM 125 mEq/L (134-144)
[2016-09-13] MEDS: PATCH REMOVAL 1 EA PATCH TD SCH (21:14)
[2016-09-14] MEDS: NS 1,000 ML IV SCH ×3 (03:13→21:12)
[2016-09-14] MEDS: oxyCODONE IR 5 MG TAB PO PRN ×3 (03:13→15:39)
[2016-09-14] MEDS: ACETAMINOPHEN 500 MG TAB PO SCH ×3 (05:45→21:11)
[2016-09-14] MEDS: IBUPROFEN 600 MG TAB PO SCH ×3 (05:46→21:10)
[2016-09-14 05:54] LABS: % IMMATURE GRANULYOCYTES 0.5 % (0.0-1.1); ABSOLUTE IMMATURE GRANULOCYTES 0.03 10^3/uL (0.00-0.10); ADD DIFF? NO; ADD MORPH? NO; ADD SCAN? NO; ATYPICAL LYMPHOCYTE FLAG 0 (0-99); FRAGMENT RBC FLAG 0 (0-99); HEMATOCRIT 30.3 % (40.0-51.0); HEMOGLOBIN 10.3 g/dL (13.7-17.5); LEFT SHIFT FLG 0 (0-99); LIPEMIA HEMOLYSIS FLAG 90 (0-99); MEAN CELL HEMOGLOBIN 32.8 pg (27.9-34.1); MEAN CELL VOLUME 96.5 fL (81.5-99.8); MEAN PLATELET VOLUME 9.2 fL (8.7-11.7); PLATELET CLUMPS FLAG 0 (0-99); PLATELET COUNT 135 10^3/uL (150-400); RED BLOOD CELL COUNT 3.14 10^6/uL (4.40-6.38); RED CELL DISTRIBUTION WIDTH 13.6 % (11.5-15.2)
[2016-09-14 06:02] LABS: ALBUMIN 2.3 g/dL (3.5-5.0); BILIRUBIN,TOTAL 0.6 mg/dL (0.1-1.4); BILIRUBIN-CONJUGATED 0.3 mg/dL (0.0-0.5); BILIRUBIN-UNCONJUGATED 0.3 mg/dL (0.0-1.1); MAGNESIUM 1.6 mg/dL (1.6-2.3); TOTAL PROTEIN 4.6 g/dL (6.3-8.2)
[2016-09-14 06:31] LABS: ANION GAP 5 mEq/L (8-16); CALCIUM 7.8 mg/dL (8.5-10.4); CARBON DIOXIDE 26 mEq/l (22-31); CHLORIDE 98 mEq/L (97-110); CREATININE 0.6 mg/dL (0.7-1.3); GLOMERULAR FILTRATION RATE > 60; GLUCOSE 80 mg/dL (70-100); POTASSIUM 4.5 mEq/L (3.5-5.2); SODIUM 129 mEq/L (134-144)
[2016-09-14] MEDS: ENOXAPARIN 40 MG/0.4 ML SYR SC SCH (08:27)
[2016-09-14] MEDS: CYCLOBENZAPRINE 10 MG TAB PO SCH ×3 (08:29→21:10)
[2016-09-14] MEDS: LIDOCAINE 5% 1 EA PATCH TD SCH (08:30)
[2016-09-14] MEDS: TIOTROPIUM INHALER 18 MCG/DOSE 5 DOSE/MDI IH SCH (09:11)
[2016-09-14] MEDS: FLUTICASONE/SALMETER 250/50MCG DISKUS IH SCH ×2 (09:12→21:38)
--- NOTE | 2016-09-14 09:12 | SOAPPROG ---
SOAP Progress Note Assessment/Plan: Assessment: Plan: Subjective: vss, af very diminished breasth sounds right, secondary to hemothorax and small apicla pneumo. will have ir drain hemothorax today. Objective: Vital Signs Temp Pulse Resp BP Pulse Ox 36.7 C 87 16 124/80 H 97 09/14/16 08:00 09/14/16 08:00 09/14/16 08:00 09/14/16 08:00 09/14/16 08:00 Laboratory Results 09/14/16 05:05 09/14/16 05:05 09/13/16 09/14/16 09/15/16 05:59 05:59 05:59 Intake Total 3100 3753 Output Total 950 1245 Balance 2150 2508 ICD10 Worksheet Patient Problems: Problems Problem Status Onset Hyponatremia Acute Ribs, multiple fractures Acute Right pulmonary contusion Acute Subcutaneous emphysema due to trauma Acute
--- NOTE | 2016-09-14 10:06 | HOSPPROG ---
Hospitalist Progress Note Assessment/Plan: # hyponatremia - seems combination of SIADH and hypovolemia - Na better today - recheck tomorrow - cont fluid restrict and IVF # possible R lung mass - needs close outpt f/u # acute R sided rib fx's/hemopneumothorax - pain control; cont IS, flutter valve - hasmukh today per IR # anemia - lower today, follow # acute hypoxic resp failure d/t rib fx's, splinting # COPD, chronic ## CXR personally reviewed discussed with Dr Ball - hasmukh today Subjective: ongoing R sided CP Objective: Vital Signs Temp Pulse Resp BP Pulse Ox 36.7 C 105 H 16 124/80 H 95 09/14/16 08:00 09/14/16 09:14 09/14/16 09:14 09/14/16 08:00 09/14/16 09:14 Laboratory Results 09/14/16 05:05 09/14/16 05:05 09/13/16 09/14/16 09/15/16 05:59 05:59 05:59 Intake Total 3100 3753 Output Total 950 1245 Balance 2150 2508 - Physical Exam Constitutional: unkempt Cardiovascular: regular rate and rhythym, no murmur, rub, or gallop Respiratory: no respiratory distress, no rales or rhonchi, other (diminished R sided BS) Gastrointestinal: normoactive bowel sounds, soft, non-tender abdomen, no palpable masses ICD10 Worksheet Patient Problems: Problems Problem Status Onset Ribs, multiple fractures Acute Right pulmonary contusion Acute Hyponatremia Acute Subcutaneous emphysema due to trauma Acute
[2016-09-14 11:46] LABS: INR 1.21 (0.83-1.16); PROTIME(PATIENT) 15.3 SEC (12.0-15.0)
[2016-09-14] MEDS ORDERED: LIDOCAINE 1% 30 ML SDV ONE (13:24)
[2016-09-14] MEDS ORDERED: NA BICARBONATE 50 MEQ/50 ML VIAL ONE (13:24)
--- NOTE | 2016-09-14 18:57 | SOAPPROG ---
SOAP Progress Note Assessment/Plan: Assessment: Plan: Subjective: 1200 of blood aspirated out during thoracentesis. pt feels he is breathing much better. only modest pain despite chest wall being moderately caved in. pneumothorax persists. i discussed placing a chest tube with patient- he would liek to avoid if possible. will check daily films. Objective: Vital Signs Temp Pulse Resp BP Pulse Ox 37.0 C 16 L 16 123/88 H 95 09/14/16 16:00 09/14/16 16:00 09/14/16 16:00 09/14/16 16:00 09/14/16 16:00 Laboratory Results 09/14/16 05:05 09/14/16 05:05 09/13/16 09/14/16 09/15/16 05:59 05:59 05:59 Intake Total 3100 3753 2371 Output Total 950 1245 620 Balance 2150 2508 1751 PT 15.3 SEC (12.0-15.0) H 09/14/16 11:15 INR 1.21 (0.83-1.16) H 09/14/16 11:15 ICD10 Worksheet Patient Problems: Problems Problem Status Onset Hyponatremia Acute Ribs, multiple fractures Acute Right pulmonary contusion Acute Subcutaneous emphysema due to trauma Acute
[2016-09-14] MEDS: PATCH REMOVAL 1 EA PATCH TD SCH (21:11)
[2016-09-15] MEDS: oxyCODONE IR 5 MG TAB PO PRN ×2 (01:32→08:48)
[2016-09-15] MEDS: NS 1,000 ML IV SCH (04:27)
[2016-09-15] MEDS: ACETAMINOPHEN 500 MG TAB PO SCH ×3 (05:12→20:48)
[2016-09-15] MEDS: IBUPROFEN 600 MG TAB PO SCH ×4 (05:13→20:50)
[2016-09-15 05:21] LABS: ANION GAP 5 mEq/L (8-16); CALCIUM 8.1 mg/dL (8.5-10.4); CARBON DIOXIDE 26 mEq/l (22-31); CHLORIDE 101 mEq/L (97-110); CREATININE 0.6 mg/dL (0.7-1.3); GLOMERULAR FILTRATION RATE > 60; GLUCOSE 84 mg/dL (70-100); MAGNESIUM 1.6 mg/dL (1.6-2.3); POTASSIUM 4.4 mEq/L (3.5-5.2); SODIUM 132 mEq/L (134-144)
[2016-09-15 06:32] LABS: % IMMATURE GRANULYOCYTES 0.3 % (0.0-1.1); ABSOLUTE IMMATURE GRANULOCYTES 0.02 10^3/uL (0.00-0.10); ADD DIFF? NO; ADD MORPH? NO; ADD SCAN? YES; ATYPICAL LYMPHOCYTE FLAG 0 (0-99); FRAGMENT RBC FLAG 0 (0-99); HEMATOCRIT 27.9 % (40.0-51.0); HEMOGLOBIN 9.5 g/dL (13.7-17.5); LEFT SHIFT FLG 0 (0-99); LIPEMIA HEMOLYSIS FLAG 90 (0-99); MEAN CELL HEMOGLOBIN 32.8 pg (27.9-34.1); MEAN CELL HEMOGLOBIN CONCENTR. 34.1 g/dL (32.4-36.7); MEAN CELL VOLUME 96.2 fL (81.5-99.8); MEAN PLATELET VOLUME 8.9 fL (8.7-11.7); PLATELET CLUMPS FLAG 10 (0-99); PLATELET COUNT 177 10^3/uL (150-400); RED CELL DISTRIBUTION WIDTH 13.5 % (11.5-15.2)
[2016-09-15 07:05] LABS: SCAN NEGATIVE
[2016-09-15] MEDS: CYCLOBENZAPRINE 10 MG TAB PO SCH ×3 (08:43→20:51)
[2016-09-15] MEDS: LIDOCAINE 5% 1 EA PATCH TD SCH (08:43)
[2016-09-15] MEDS: ENOXAPARIN 40 MG/0.4 ML SYR SC SCH (08:45)
--- NOTE | 2016-09-15 09:28 | HOSPPROG ---
Hospitalist Progress Note Assessment/Plan: # hyponatremia - seems combination of SIADH and hypovolemia - continued slow rise - follow daily - cont fluid restrict, stop IVF # possible R lung mass - needs close outpt f/u # acute R sided rib fx's/hemopneumothorax - pain control; cont IS, flutter valve - ptx worse today - may need chest tube - s/p thora # anemia - lower today, follow - hold lovenox # acute hypoxic resp failure d/t rib fx's, splinting # COPD, chronic ## CXR personally reviewed chart reviewed including Dr Ball's note Subjective: s/p thora yesterday Objective: Vital Signs Temp Pulse Resp BP Pulse Ox 36.7 C 101 H 16 109/77 98 09/15/16 07:46 09/15/16 07:46 09/15/16 07:46 09/15/16 07:46 09/15/16 07:46 Laboratory Results 09/15/16 04:44 09/15/16 04:44 09/14/16 09/15/16 09/16/16 05:59 05:59 05:59 Intake Total 3753 3821 Output Total 1245 1245 Balance 2508 2576 PT 15.3 SEC (12.0-15.0) H 09/14/16 11:15 INR 1.21 (0.83-1.16) H 09/14/16 11:15 - Physical Exam Constitutional: unkempt Cardiovascular: regular rate and rhythym, no murmur, rub, or gallop Respiratory: no respiratory distress, reduced air movement, expiratory wheeze, other (diminished R sided BS) Gastrointestinal: normoactive bowel sounds, soft, non-tender abdomen, no palpable masses ICD10 Worksheet Patient Problems: Problems Problem Status Onset Ribs, multiple fractures Acute Right pulmonary contusion Acute Hyponatremia Acute Subcutaneous emphysema due to trauma Acute
[2016-09-15] MEDS: FLUTICASONE/SALMETER 250/50MCG DISKUS IH SCH ×2 (10:05→21:04)
[2016-09-15] MEDS: TIOTROPIUM INHALER 18 MCG/DOSE 5 DOSE/MDI IH SCH (10:05)
--- NOTE | 2016-09-15 12:50 | SOAPPROG ---
SOAP Progress Note Assessment/Plan: Assessment: 61-year-old male with the multiple rib fractures after a fall / also a right lower lobe lung mass suspicious for carcinoma Chest x-ray today suggest is somewhat enlarging right pleural effusion which could be consistent with the hemothorax risks and options fully discussed with the patient Plan: follow-up chest x-ray in the a.m. / possible need for drainage if increasing 09/13/16 16:40 09/15/16 12:49 COMFORTABLE BUT STILL WITH SIGNIFICANT PNEUMOTHORAX AFTER YESTERDAY'S THORACENTESIS / RISKS AND OPTIONS FULLY DISCUSSED WITH THE PATIENT/ PLAN IS CHEST TUBE PLACEMENT Objective: Vital Signs Temp Pulse Resp BP Pulse Ox 36.7 C 99 16 110/81 H 97 09/15/16 11:37 09/15/16 11:37 09/15/16 11:37 09/15/16 11:37 09/15/16 11:37 Laboratory Results 09/15/16 04:44 09/15/16 04:44 09/14/16 09/15/16 09/16/16 05:59 05:59 05:59 Intake Total 3453 3821 Output Total 1245 1245 Balance 2508 2576 PT 15.3 SEC (12.0-15.0) H 09/14/16 11:15 INR 1.21 (0.83-1.16) H 09/14/16 11:15 ICD10 Worksheet Patient Problems: Problems Problem Status Onset Hyponatremia Acute Ribs, multiple fractures Acute Right pulmonary contusion Acute Subcutaneous emphysema due to trauma Acute
[2016-09-15] MEDS ORDERED: MIDAZOLAM 2 MG/2 ML VIAL ONE (13:43)
[2016-09-15] MEDS ORDERED: fentaNYL 100 MCG/2 ML INJ ONE (13:43)
[2016-09-15] MEDS ORDERED: POLYETHYLENE GLYCOL 3350 17 GM PKT PO PRN (14:02)
[2016-09-15] MEDS ORDERED: MAGNESIUM HYDROXIDE 30 ML UDCUP PO PRN (14:02)
[2016-09-15] MEDS ORDERED: BISACODYL 10 MG SUPP PR PRN (14:02)
[2016-09-15] MEDS ORDERED: LACTULOSE 20 GM/30 ML UDCUP PO PRN (14:02)
[2016-09-15] MEDS ORDERED: fentaNYL 100 MCG/2 ML INJ IVP ONE (14:09)
[2016-09-15] MEDS ORDERED: MIDAZOLAM 2 MG/2 ML VIAL IVP ONE (14:09)
--- NOTE | 2016-09-15 14:42 | POSTOPPROG ---
Post Op Note Date of Operation: 09/15/16 Surgeon: Partha Carver Anesthesia: IV Sedation, Local (Specify) Pre-op Diagnosis: hemopneumothorax Post-op Diagnosis: same Indication: hemothorax Procedure: right chest tube placement Findings: full expansion/ over 500cc removed Inf/Abcess present in the surg proc area at time of surgery?: No Depth: Organ Space EBL: Minimal Complications: 0 Drains: Constavac
--- NOTE | 2016-09-15 16:06 | GOP ---
[f rep st] OPERATIVE REPORT DATE OF OPERATION: 09/15/2016 SURGEON: Partha Carver MD PREOPERATIVE DIAGNOSIS: Right hemopneumothorax. POSTOPERATIVE DIAGNOSIS: Right hemopneumothorax. PROCEDURE PERFORMED: Right tube thoracostomy with IV sedation. FINDINGS: Patient was found to have complete re-expansion of the lung and evacuation of over 500 cc of old blood. DESCRIPTION OF PROCEDURE: Patient taken to the emergency room, where he received some IV sedation w ith fentanyl and Versed. He was prepped and draped in usual sterile fashion. Transverse incision w as made in the 7th intercostal space in the anterior axillary line. Dissection extended through the subcutaneous tissue and into the interspace just above this area. #28-[place] chest tube was introd uced and positioned in the apex of the chest. Evacuated a large amount of old blood and air. Chest tube was secured with an 0 silk suture, connected to Pleur-Evac drainage system with 20 cm of sucti on. The wound was dressed. Followup chest x-ray shows full expansion. He tolerated the procedure very well. No complications. Blood loss negligible. He was taken to room in good condition. /[id number]/MODL
[2016-09-15] MEDS: SENNOSIDES/DOCUSATE SODIUM TAB PO SCH (20:51)
[2016-09-15] MEDS: ALBUTEROL 60 PUFFS/8 GM MDI IH PRN (21:03)
[2016-09-15] MEDS: PATCH REMOVAL 1 EA PATCH TD SCH (21:53)
[2016-09-16] MEDS ORDERED: methylPREDNISolone SOD SUCC 125 MG/2 ML VIAL IVP ONE (03:55)
[2016-09-16] MEDS ORDERED: IPRATROPIUM/ALBUTEROL 3 ML DEYVIAL ONE (04:03)
[2016-09-16] MEDS: oxyCODONE IR 5 MG TAB PO PRN (04:11)
[2016-09-16] MEDS: IPRATROPIUM/ALBUTEROL 3 ML DEYVIAL IH SCH ×5 (04:25→21:26)
--- NOTE | 2016-09-16 04:45 | CPEKG ---
Heart Rate: 87 RR Interval: 690 P-R Interval: 160 QRSD Interval: 86 QT Interval: 372 QTC Interval: 448 P [place]: 63 QRS [place]: 79 T Wave [place]: 38 EKG Severity - OTHERWISE NORMAL ECG - EKG Impression: SINUS RHYTHM EKG Impression: LOW VOLTAGE IN FRONTAL LEADS Electronically Signed By: Kurt Bahena 16-Sep-2016 06:25:18
[2016-09-16 05:17] LABS: % IMMATURE GRANULYOCYTES 0.8 % (0.0-1.1); ABSOLUTE IMMATURE GRANULOCYTES 0.03 10^3/uL (0.00-0.10); ADD DIFF? NO; ADD MORPH? NO; ADD SCAN? NO; ATYPICAL LYMPHOCYTE FLAG 60 (0-99); FRAGMENT RBC FLAG 0 (0-99); HEMATOCRIT 22.5 % (40.0-51.0); HEMOGLOBIN 7.9 g/dL (13.7-17.5); LEFT SHIFT FLG 0 (0-99); LIPEMIA HEMOLYSIS FLAG 90 (0-99); MEAN CELL HEMOGLOBIN 33.3 pg (27.9-34.1); MEAN CELL HEMOGLOBIN CONCENTR. 35.1 g/dL (32.4-36.7); MEAN CELL VOLUME 94.9 fL (81.5-99.8); MEAN PLATELET VOLUME 8.7 fL (8.7-11.7); PLATELET CLUMPS FLAG 0 (0-99); PLATELET COUNT 155 10^3/uL (150-400); RED BLOOD CELL COUNT 2.37 10^6/uL (4.40-6.38); RED CELL DISTRIBUTION WIDTH 13.2 % (11.5-15.2)
[2016-09-16 05:48] LABS: ANION GAP 2 mEq/L (8-16); CALCIUM 8.1 mg/dL (8.5-10.4); CARBON DIOXIDE 26 mEq/l (22-31); CHLORIDE 99 mEq/L (97-110); CREATININE 0.6 mg/dL (0.7-1.3); GLOMERULAR FILTRATION RATE > 60; GLUCOSE 90 mg/dL (70-100); POTASSIUM 4.3 mEq/L (3.5-5.2); SODIUM 127 mEq/L (134-144)
[2016-09-16] MEDS: ACETAMINOPHEN 500 MG TAB PO SCH ×3 (05:49→21:15)
[2016-09-16] MEDS: IBUPROFEN 600 MG TAB PO SCH ×3 (05:52→21:15)
[2016-09-16 05:55] LABS: TROPONIN I < 0.012 ng/mL (0-0.034)
[2016-09-16] MEDS: CYCLOBENZAPRINE 10 MG TAB PO SCH ×3 (08:52→21:15)
[2016-09-16] MEDS: SENNOSIDES/DOCUSATE SODIUM TAB PO SCH ×2 (08:52→21:15)
[2016-09-16] MEDS: LIDOCAINE 5% 1 EA PATCH TD SCH (08:59)
--- NOTE | 2016-09-16 09:13 | TRAUMAPN ---
- Problem/Surgery Performed (1) Pneumothorax with hemothorax, traumatic Assessment/Plan: PAD#4 Chest tube day# 2 Assessment: There is a small PTX today with chest tube not incontinuity with PTX. There is no air leak. 250cc out since chest tube placement yesterday. This is stable. Will follow. Plan: Follow CXR and output. Suspect that he will need chest tube for at least 48 more hours. Will consider F/U CT after c hest tube is out to re-assess possible neoplasia vs contusion. Qualifiers: Encounter type: E (2) Ribs, multiple fractures Assessment/Plan: Assessment: Ribs not currently an issue. Doubt that surgical fixation will become necessary. Qualifiers: Encounter type: initial encounter Fracture type: closed Laterality: right Fracture healing: F Qualified Code(s): S22.41XA - Multiple fractures of ribs, right side, initial encounter for closed fracture (3) Hyponatremia Assessment/Plan: On fluid restriction. Will follow Na. (4) Anemia Assessment/Plan: Presume secondary to injury and lab draw. will follow Qualifiers: Anemia type: unspecified type Iron deficiency anemia type: I Vitamin B12 deficiency anemia type: V Folate deficiency anemia type: F Bone marrow failure anemia type: B Hemolytic anemia type: H Other causes of anemia: O Qualified Code(s): D64.9 - Anemia, unspecified Subjective: No complaints. Has not moved his bowels yet. Objective: Vital Signs Temp Pulse Resp BP Pulse Ox 36.9 C 101 H 18 106/70 93 09/16/16 08:00 09/16/16 08:00 09/16/16 08:00 09/16/16 08:00 09/16/16 08:00 Laboratory Results 09/16/16 05:12 09/16/16 05:12 09/15/16 09/16/16 09/17/16 05:59 05:59 05:59 Intake Total 3821 980 450 Output Total 1245 372 Balance 2576 608 450 PT 15.3 SEC (12.0-15.0) H 09/14/16 11:15 INR 1.21 (0.83-1.16) H 09/14/16 11:15 - C-Spine Clearance Cervical Spine Cleared: Yes Physical Exam - Physical Exam General Appearance: WD/WN, alert, no apparent distress Neck: non-tender, full range of motion, supple, normal inspection Respiratory: lungs clear, normal breath sounds Cardiac/Chest: regular rate, rhythm Abdomen: normal bowel sounds, non-tender, soft Male Genitalia: deferred Rectal: deferred Back: Normal inspection Skin: normal color Extremities: normal range of motion, non-tender Neuro/Psych: alert, normal mood/affect, oriented x 3 Time Spent w/Patient (minutes): 25
[2016-09-16] MEDS: FLUTICASONE/SALMETER 250/50MCG DISKUS IH SCH ×2 (09:22→21:25)
--- NOTE | 2016-09-16 09:58 | HOSPPROG ---
Hospitalist Progress Note Assessment/Plan: # hyponatremia - seems combination of SIADH and hypovolemia: worse today - repeat urine studies - cont fluid restrict # possible R lung mass - plan to repeat CT here when CT out - will need outpatient f/u # acute R sided rib fx's/hemopneumothorax - s/p chest tube yesterday - CT with about 750cc out; ptx stable; trauma following # anemia - continues to worsen - lovenox held by trauma - ok to keep off today - follow, may need transfusion # acute hypoxic resp failure d/t rib fx's, splinting - elevated d-dimer noted; doubt PE at this point given clinical improvement and he has been on lovenox ppx # COPD, chronic ## high risk with acute dyspnea Subjective: episode of dyspnea this am; given nebs and steroids with improvement Objective: Vital Signs Temp Pulse Resp BP Pulse Ox 36.9 C 101 H 18 106/70 93 09/16/16 08:00 09/16/16 08:00 09/16/16 08:00 09/16/16 08:00 09/16/16 08:00 Laboratory Results 09/16/16 05:12 09/16/16 05:12 09/15/16 09/16/16 09/17/16 05:59 05:59 05:59 Intake Total 3821 980 450 Output Total 1245 372 Balance 2576 608 450 PT 15.3 SEC (12.0-15.0) H 09/14/16 11:15 INR 1.21 (0.83-1.16) H 09/14/16 11:15 - Physical Exam Constitutional: unkempt Cardiovascular: regular rate and rhythym, no murmur, rub, or gallop Respiratory: no respiratory distress, other (CT in place, serosanguinous; diminished R sided BS; no rales/wheezes) Gastrointestinal: normoactive bowel sounds, soft, non-tender abdomen, no palpable masses ICD10 Worksheet Patient Problems: Problems Problem Status Onset Ribs, multiple fractures Acute Right pulmonary contusion Acute Hyponatremia Acute Subcutaneous emphysema due to trauma Acute Pneumothorax with hemothorax, traumatic Acute Anemia Acute
[2016-09-16] MEDS ORDERED: NS 1,000 ML IV ONE (16:17)
[2016-09-16] MEDS: PATCH REMOVAL 1 EA PATCH TD SCH (21:26)
[2016-09-17 05:10] LABS: HEMATOCRIT 21.2 % (40.0-51.0); HEMOGLOBIN 7.6 g/dL (13.7-17.5); MEAN CELL HEMOGLOBIN 33.9 pg (27.9-34.1); MEAN CELL HEMOGLOBIN CONCENTR. 35.8 g/dL (32.4-36.7); MEAN CELL VOLUME 94.6 fL (81.5-99.8); RED BLOOD CELL COUNT 2.24 10^6/uL (4.40-6.38); RED CELL DISTRIBUTION WIDTH 13.5 % (11.5-15.2)
[2016-09-17 05:29] LABS: ANION GAP 2 mEq/L (8-16); CALCIUM 8.3 mg/dL (8.5-10.4); CARBON DIOXIDE 27 mEq/l (22-31); CHLORIDE 99 mEq/L (97-110); CREATININE 0.6 mg/dL (0.7-1.3); GLOMERULAR FILTRATION RATE > 60; GLUCOSE 118 mg/dL (70-100); POTASSIUM 4.2 mEq/L (3.5-5.2); SODIUM 128 mEq/L (134-144)
[2016-09-17] MEDS: IBUPROFEN 600 MG TAB PO SCH ×3 (05:57→22:10)
[2016-09-17] MEDS: HYDROmorphONE/DILAUDID 2 MG TAB PO PRN ×2 (06:01→15:45)
[2016-09-17] MEDS: ACETAMINOPHEN 500 MG TAB PO SCH ×3 (06:09→21:33)
[2016-09-17] MEDS: IPRATROPIUM/ALBUTEROL 3 ML DEYVIAL IH SCH ×4 (06:39→23:04)
[2016-09-17] MEDS: CYCLOBENZAPRINE 10 MG TAB PO SCH ×3 (09:07→21:33)
[2016-09-17] MEDS: LIDOCAINE 5% 1 EA PATCH TD SCH (09:07)
[2016-09-17] MEDS: SENNOSIDES/DOCUSATE SODIUM TAB PO SCH ×2 (09:08→21:33)
--- NOTE | 2016-09-17 09:37 | TRAUMAPN ---
- Problem/Surgery Performed (1) Pneumothorax with hemothorax, traumatic Assessment/Plan: PAD#4 Chest tube day# 2 09/16/2016 Assessment: There is a small PTX today with chest tube not incontinuity with PTX. There is no air leak. 250cc out since chest tube placement yesterday. This is stable. Will follow. Plan: Follow CXR and output. Suspect that he will need chest tube for at least 48 more hours. Will consider F/U CT after chest tube is out to re-assess possible neoplasia vs contusion. 09/17/2016 Assessment: The PTX is smaller on CXR. Nursing noted an air leak with cough this AM. Chest tube drainage ~ 250cc serosanguineous fluid for last 24 hours. Plan: Continue chest tube suction and obtain CXR in AM. Qualifiers: Encounter type: E (2) Ribs, multiple fractures Assessment/Plan: 09/16/2016 Assessment: Ribs not currently an issue. Doubt that surgical fixation will become necessary. 09/17/2016 Still not an issue Qualifiers: Encounter type: initial encounter Fracture type: closed Laterality: right Fracture healing: F Qualified Code(s): S22.41XA - Multiple fractures of ribs, right side, initial encounter for closed fracture (3) Hyponatremia Assessment/Plan: 09/16/2016 On fluid restriction. Will follow Na. 09/17/2016 Na up to 128 (4) Anemia Assessment/Plan: 09/16/2016 Presume secondary to injury and lab draw. will follow 09/17/2016 Seems to be stabilizing. will follow. Qualifiers: Anemia type: unspecified type Iron deficiency anemia type: I Vitamin B12 deficiency anemia type: V Folate deficiency anemia type: F Bone marrow failure anemia type: B Hemolytic anemia type: H Other causes of anemia: O Qualified Code(s): D64.9 - Anemia, unspecified Assessment/Plan: 09/17/2016 He plans not to return to 9200 feet initially but rather to go to [place] for 30 days post discharge. Subjective: no stool x 48 hours but feels like he will have a stool today Objective: Vital Signs Temp Pulse Resp BP Pulse Ox 36.6 C 94 18 106/73 97 09/17/16 08:00 09/17/16 08:00 09/17/16 08:00 09/17/16 08:00 09/17/16 08:00 Laboratory Results 09/17/16 05:00 09/17/16 05:00 09/16/16 09/17/16 09/18/16 05:59 05:59 05:59 Intake Total 980 2000 Output Total 372 1160 130 Balance 608 840 -130 PT 15.3 SEC (12.0-15.0) H 09/14/16 11:15 INR 1.21 (0.83-1.16) H 09/14/16 11:15 - C-Spine Clearance Cervical Spine Cleared: Yes Physical Exam - Physical Exam General Appearance: alert, no apparent distress Neck: non-tender, full range of motion, supple, normal inspection Respiratory: chest non-tender, lungs clear, normal breath sounds, other (no air leak noted. 250cc out chest tube in past 24 hours) Cardiac/Chest: regular rate, rhythm Abdomen: normal bowel sounds, non-tender, soft Male Genitalia: deferred Back: Normal inspection Skin: normal color, warm/dry, other (extensive right flank ecchymosis) Neuro/Psych: alert, normal mood/affect, oriented x 3 Time Spent w/Patient (minutes): 25
[2016-09-17] MEDS: FLUTICASONE/SALMETER 250/50MCG DISKUS IH SCH ×2 (10:13→20:43)
--- NOTE | 2016-09-17 12:09 | HOSPPROG ---
Hospitalist Progress Note Assessment/Plan: # hyponatremia - combination of SIADH and hypovolemia: slightly better today - cont fluid restrict, will hold on IVF today to see if it worsens - not taking much PO # possible R lung mass - plan to repeat CT here when CT out - will need outpatient f/u # acute R sided rib fx's/hemopneumothorax - s/p chest tube - trauma managing, currently on suctino with aobut 1L total out # anemia - continues to worsen - may have hit kristine today; follow tomorrow # acute hypoxic resp failure d/t rib fx's, splinting - elevated d-dimer noted; doubt PE at this point given clinical improvement and he has been on lovenox ppx # COPD, chronic Subjective: feels well, no real complaints Objective: Vital Signs Temp Pulse Resp BP Pulse Ox 36.5 C 104 H 18 113/74 95 09/17/16 11:47 09/17/16 11:47 09/17/16 11:47 09/17/16 11:47 09/17/16 11:47 Laboratory Results 09/17/16 05:00 09/17/16 05:00 09/16/16 09/17/16 09/18/16 05:59 05:59 05:59 Intake Total 980 2000 Output Total 372 1160 130 Balance 608 840 -130 PT 15.3 SEC (12.0-15.0) H 09/14/16 11:15 INR 1.21 (0.83-1.16) H 09/14/16 11:[address] Lopez CXR personally reviewed - Physical Exam Constitutional: no apparent distress, unkempt Cardiovascular: regular rate and rhythym, no murmur, rub, or gallop Respiratory: no respiratory distress, no rales or rhonchi, other (diminished R sided BS) Gastrointestinal: normoactive bowel sounds, soft, non-tender abdomen, no palpable masses ICD10 Worksheet Patient Problems: Problems Problem Status Onset Ribs, multiple fractures Acute Right pulmonary contusion Acute Hyponatremia Acute Subcutaneous emphysema due to trauma Acute Pneumothorax with hemothorax, traumatic Acute Anemia Acute
[2016-09-17] MEDS: PATCH REMOVAL 1 EA PATCH TD SCH (22:16)
[2016-09-18] MEDS: ALBUTEROL 60 PUFFS/8 GM MDI IH PRN (03:55)
[2016-09-18] MEDS: IPRATROPIUM/ALBUTEROL 3 ML DEYVIAL IH SCH ×3 (05:03→16:22)
[2016-09-18] MEDS: HYDROmorphONE/DILAUDID 1 MG/ML SYR IVP PRN (05:18)
[2016-09-18] MEDS: IBUPROFEN 600 MG TAB PO SCH ×3 (05:20→22:53)
[2016-09-18] MEDS: ACETAMINOPHEN 500 MG TAB PO SCH ×3 (05:28→22:53)
[2016-09-18 06:15] LABS: HEMATOCRIT 23.8 % (40.0-51.0); HEMOGLOBIN 8.3 g/dL (13.7-17.5); MEAN CELL HEMOGLOBIN 32.8 pg (27.9-34.1); MEAN CELL HEMOGLOBIN CONCENTR. 34.9 g/dL (32.4-36.7); MEAN CELL VOLUME 94.1 fL (81.5-99.8); RED BLOOD CELL COUNT 2.53 10^6/uL (4.40-6.38); RED CELL DISTRIBUTION WIDTH 13.2 % (11.5-15.2)
[2016-09-18 07:10] LABS: ANION GAP 5 mEq/L (8-16); CALCIUM 8.3 mg/dL (8.5-10.4); CARBON DIOXIDE 28 mEq/l (22-31); CHLORIDE 93 mEq/L (97-110); CREATININE 0.5 mg/dL (0.7-1.3); GLOMERULAR FILTRATION RATE > 60; GLUCOSE 81 mg/dL (70-100); POTASSIUM 4.2 mEq/L (3.5-5.2); SODIUM 126 mEq/L (134-144)
[2016-09-18] MEDS: SENNOSIDES/DOCUSATE SODIUM TAB PO SCH ×2 (08:27→22:53)
[2016-09-18] MEDS: LIDOCAINE 5% 1 EA PATCH TD SCH (08:27)
[2016-09-18] MEDS: CYCLOBENZAPRINE 10 MG TAB PO SCH ×3 (08:27→21:16)
[2016-09-18] MEDS ORDERED: NS 500 ML IV ONE (09:48)
[2016-09-18] MEDS ORDERED: MAGNESIUM CITRATE 300 ML BOTTLE PO ONE (09:48)
--- NOTE | 2016-09-18 09:54 | HOSPPROG ---
Hospitalist Progress Note Assessment/Plan: 61 yo M w fall, R rib fractures, R hemopneumothorax, constipation and hyponatremia hyponatremia - combination of SIADH and hypovolemia: trending worse over last few days elevated uosms noted - this is suggestive of SIADH but failure to improve w fluid restriction less c/w SIADH 1. give 500 cc NS now and repat at 2 pm if rises, will continue fluids if falls will tighten fluid restriction possible R lung mass - plan to repeat CT here when CT out - will need outpatient f/u acute R sided rib fx's/hemopneumothorax - s/p chest tube - trauma managing, currently on suction with aobut 1L total out anemia - continues to worsen - may have hit kristine today; follow tomorrow stable, no need for plan acute hypoxic resp failure d/t rib fx's, splinting - elevated d-dimer noted; doubt PE at this point given clinical improvement and he has been on lovenox ppx constipation mag citrate COPD, chronic proph: enox Subjective: case discussed w dr flores. cxr w residual R apical pneumothorax and chest tube (interp by me) Objective: Vital Signs Temp Pulse Resp BP Pulse Ox 36.6 C 99 14 122/82 H 96 09/18/16 08:35 09/18/16 08:35 09/18/16 08:35 09/18/16 08:35 09/18/16 08:35 Laboratory Results 09/18/16 05:55 09/18/16 05:55 09/17/16 09/18/16 09/19/16 05:59 05:59 05:59 Intake Total 2000 1500 Output Total 1160 250 Balance 840 1250 PT 15.3 SEC (12.0-15.0) H 09/14/16 11:15 INR 1.21 (0.83-1.16) H 09/14/16 11:15 - Physical Exam Constitutional: no apparent distress, appears nourished Eyes: PERRL, anicteric sclera Ears, Nose, Mouth, Throat: moist mucous membranes, hearing normal Cardiovascular: regular rate and rhythym, no murmur, rub, or gallop, No tachycardia Respiratory: no respiratory distress, no rales or rhonchi, other (subcutaneous air R chest) Gastrointestinal: normoactive bowel sounds, soft, non-tender abdomen, no palpable masses Genitourinary: No smith in urethra Skin: warm, normal color Musculoskeletal: full muscle strength, no muscle tenderness Neurologic: AAOx3, sensation intact bilaterally Psychiatric: not anxious ICD10 Worksheet Patient Problems: Problems Problem Status Onset Anemia Acute Hyponatremia Acute Pneumothorax with hemothorax, traumatic Acute Ribs, multiple fractures Acute Right pulmonary contusion Acute Subcutaneous emphysema due to trauma Acute
[2016-09-18] MEDS: FLUTICASONE/SALMETER 250/50MCG DISKUS IH SCH ×2 (10:16→21:54)
--- NOTE | 2016-09-18 11:02 | TRAUMAPN ---
- Problem/Surgery Performed (1) Pneumothorax with hemothorax, traumatic Assessment/Plan: PAD#4 Chest tube day# 2 09/16/2016 Assessment: There is a small PTX today with chest tube not incontinuity with PTX. There is no air leak. 250cc out since chest tube placement yesterday. This is stable. Will follow. Plan: Follow CXR and output. Suspect that he will need chest tube for at least 48 more hours. Will consider F/U CT after chest tube is out to re-assess possible neoplasia vs contusion. 09/17/2016 Assessment: The PTX is smaller on CXR. Nursing noted an air leak with cough this AM. Chest tube drainage ~ 250cc serosanguineous fluid for last 24 hours. Plan: Continue chest tube suction and obtain CXR in AM. 09/18/2016 Assessment: Tiny persistent apical PTX. No air leak. Serous chest tube drainage Plan: Chest tube off suction Qualifiers: Encounter type: E (2) Ribs, multiple fractures Assessment/Plan: 09/16/2016 Assessment: Ribs not currently an issue. Doubt that surgical fixation will become necessary. 09/17/2016 Still not an issue 09/18/2016 Still not an issue Qualifiers: Encounter type: initial encounter Fracture type: closed Laterality: right Fracture healing: F Qualified Code(s): S22.41XA - Multiple fractures of ribs, right side, initial encounter for closed fracture (3) Hyponatremia Assessment/Plan: 09/16/2016 On fluid restriction. Will follow Na. 09/17/2016 Na up to 128 09/18/[address] See [address]. Sheth's note regarding plan. (4) Anemia Assessment/Plan: 09/16/2016 Presume secondary to injury and lab draw. will follow 09/17/2016 Seems to be stabilizing. will follow. 09/18/2016 Stabilizing Qualifiers: Anemia type: unspecified type Iron deficiency anemia type: I Vitamin B12 deficiency anemia type: V Folate deficiency anemia type: F Bone marrow failure anemia type: B Hemolytic anemia type: H Other causes of anemia: O Qualified Code(s): D64.9 - Anemia, unspecified Assessment/Plan: 09/17/2016 He plans not to return to [facility] feet initially but rather to go to [place] for 30 days post discharge. Subjective: No stool yet! Laxatives again! Objective: Vital Signs Temp Pulse Resp BP Pulse Ox 36.6 C 97 14 122/82 H 95 09/18/16 08:35 09/18/16 10:19 09/18/16 10:19 09/18/16 08:35 09/18/16 10:19 Laboratory Results 09/18/16 05:55 09/18/16 05:55 09/17/16 09/18/16 09/19/16 05:59 05:59 05:59 Intake Total 2000 1500 Output Total 1160 250 Balance 840 1250 PT 15.3 SEC (12.0-15.0) H 09/14/16 11:15 INR 1.21 (0.83-1.16) H 09/14/16 11:15 - C-Spine Clearance Cervical Spine Cleared: Yes Physical Exam - Physical Exam General Appearance: WD/WN, alert, no apparent distress Neck: non-tender, full range of motion, supple, normal inspection Respiratory: lungs clear, normal breath sounds, respiratory distress, other ( Serous chest tube drainage without air leak) Cardiac/Chest: regular rate, rhythm Abdomen: normal bowel sounds, non-tender, soft Male Genitalia: deferred Rectal: deferred Back: Normal inspection Skin: normal color, warm/dry Extremities: normal range of motion, non-tender Neuro/Psych: alert, normal mood/affect, oriented x 3 Time Spent w/Patient (minutes): 25
[2016-09-18 14:33] LABS: ANION GAP 3 mEq/L (8-16); CALCIUM 8.3 mg/dL (8.5-10.4); CARBON DIOXIDE 28 mEq/l (22-31); CHLORIDE 92 mEq/L (97-110); CREATININE 0.5 mg/dL (0.7-1.3); GLOMERULAR FILTRATION RATE > 60; GLUCOSE 91 mg/dL (70-100); POTASSIUM 4.1 mEq/L (3.5-5.2); SODIUM 123 mEq/L (134-144)
[2016-09-18] MEDS: PATCH REMOVAL 1 EA PATCH TD SCH (22:52)
[2016-09-19] MEDS: IPRATROPIUM/ALBUTEROL 3 ML DEYVIAL IH SCH ×4 (00:35→18:09)
[2016-09-19] MEDS: IBUPROFEN 600 MG TAB PO SCH ×2 (05:53→15:01)
[2016-09-19] MEDS: ACETAMINOPHEN 500 MG TAB PO SCH ×3 (05:54→21:42)
[2016-09-19] MEDS: FLUTICASONE/SALMETER 250/50MCG DISKUS IH SCH ×2 (09:28→21:44)
[2016-09-19] MEDS: ALBUTEROL 60 PUFFS/8 GM MDI IH PRN (09:33)
[2016-09-19] MEDS: CYCLOBENZAPRINE 10 MG TAB PO SCH ×3 (09:54→21:42)
[2016-09-19] MEDS: LIDOCAINE 5% 1 EA PATCH TD SCH (09:54)
[2016-09-19] MEDS: SENNOSIDES/DOCUSATE SODIUM TAB PO SCH ×2 (09:54→20:47)
[2016-09-19 11:08] LABS: ANION GAP 6 mEq/L (8-16); CALCIUM 8.2 mg/dL (8.5-10.4); CARBON DIOXIDE 26 mEq/l (22-31); CHLORIDE 91 mEq/L (97-110); CREATININE 0.6 mg/dL (0.7-1.3); GLOMERULAR FILTRATION RATE > 60; GLUCOSE 86 mg/dL (70-100); POTASSIUM 4.3 mEq/L (3.5-5.2); SODIUM 123 mEq/L (134-144)
--- NOTE | 2016-09-19 14:38 | HOSPPROG ---
Hospitalist Progress Note Assessment/Plan: 61 yo M w fall, R rib fractures, R hemopneumothorax, constipation and hyponatremia hyponatremia - given IVF fluid challenge yesterday and Na fell- this is c/w SIADH continue fluid restriction add ensure w meals- not to be included in fluid restriction count not confused possible R lung mass - plan to repeat CT here when chest tube out may have been pulm contusion acute R sided rib fx's/hemopneumothorax - w chest tube - trauma managing, currently on suction with aobut 1L total out anemia - continues to worsen - may have hit kristine today; follow tomorrow stable, no need for plan acute hypoxic resp failure d/t rib fx's, splinting - elevated d-dimer noted; doubt PE at this point given clinical improvement and he has been on lovenox ppx constipation mag citrate COPD, chronic proph: enox Subjective: cxr w residual apical pneumonthorax. case d/w dr flores. Na stable at 123 Objective: Vital Signs Temp Pulse Resp BP Pulse Ox 36.6 C 99 15 124/82 H 91 L 09/19/16 11:45 09/19/16 12:26 09/19/16 12:26 09/19/16 11:45 09/19/16 12:26 Laboratory Results 09/18/16 05:55 09/19/16 10:33 09/18/16 09/19/16 09/20/16 05:59 05:59 05:59 Intake Total 1500 1000 100 Output Total 250 350 877 Balance 1250 650 -777 PT 15.3 SEC (12.0-15.0) H 09/14/16 11:15 INR 1.21 (0.83-1.16) H 09/14/16 11:15 - Physical Exam Constitutional: no apparent distress, appears nourished Eyes: PERRL, anicteric sclera Ears, Nose, Mouth, Throat: moist mucous membranes, hearing normal Cardiovascular: regular rate and rhythym, no murmur, rub, or gallop Respiratory: no respiratory distress, other (crackles and rhonchi on R, particularly in lower lobes), No no rales or rhonchi Gastrointestinal: normoactive bowel sounds, soft, non-tender abdomen Genitourinary: No smith in urethra Skin: warm Musculoskeletal: full muscle strength, no muscle tenderness Neurologic: AAOx3 ICD10 Worksheet Patient Problems: Problems Problem Status Onset Anemia Acute Hyponatremia Acute Pneumothorax with hemothorax, traumatic Acute Ribs, multiple fractures Acute Right pulmonary contusion Acute Subcutaneous emphysema due to trauma Acute
[2016-09-19] MEDS: HYDROmorphONE/DILAUDID 2 MG TAB PO PRN (14:59)
--- NOTE | 2016-09-19 20:21 | SOAPPROG ---
[facility] Progress Note Assessment/Plan: Assessment: 61-year-old male with the multiple rib fractures after a fall / also a right lower lobe lung mass suspicious for carcinoma Chest x-ray today suggest is somewhat enlarging right pleural effusion which could be consistent with the hemothorax risks and options fully discussed with the patient Plan: follow-up chest x-ray in the a.m. / possible need for drainage if increasing 09/13/16 16:40 09/15/16 12:49 COMFORTABLE BUT STILL WITH SIGNIFICANT PNEUMOTHORAX AFTER YESTERDAY'S THORACENTESIS / RISKS AND OPTIONS FULLY DISCUSSED WITH THE PATIENT/ PLAN IS CHEST TUBE PLACEMENT 09/19/16 20:18 QUITE COMFORTABLE WITH RIB FRACTURES AND A CHEST TUBE IN PLACE / AFEBRILE/ NO AIR LEAK/ MINIMAL DRAINAGE/ CHEST X-RAY WELL EXPANDED HE IS STILL HYPONATREMIC / BREATH SOUNDS ARE EQUAL / VITAL SIGNS ARE STABLE / HE SHOULD BE ABLE TO BE DISCHARGED IN THE NEXT COUPLE OF DAYS DEPENDING ON HIS SODIUM / HE WILL EVENTUALLY NEED A FOLLOW-UP CT SCAN IS CHEST TO RULE OUT MALIGNANCY / I WILL SEE HIM IN THE OFFICE IN APPROXIMATELY 1 MONTH AFTER DISCHARGE AND REHAB Objective: Vital Signs Temp Pulse Resp BP Pulse Ox 36.7 C 97 14 133/89 H 96 09/19/16 15:14 09/19/16 15:14 09/19/16 15:14 09/19/16 15:14 09/19/16 15:14 Laboratory Results 09/18/16 05:55 09/19/16 10:33 09/18/16 09/19/16 09/20/16 05:59 05:59 05:59 Intake Total 1500 1000 1000 Output Total 352 389 8572 Balance 1250 650 -287 PT 15.3 SEC (12.0-15.0) H 09/14/16 11:15 INR 1.21 (0.83-1.16) H 09/14/16 11:15 ICD10 Worksheet Patient Problems: Problems Problem Status Onset Anemia Acute Hyponatremia Acute Pneumothorax with hemothorax, traumatic Acute Ribs, multiple fractures Acute Right pulmonary contusion Acute Subcutaneous emphysema due to trauma Acute
[2016-09-19] MEDS ORDERED: IPRATROPIUM/ALBUTEROL 3 ML DEYVIAL IH PRN (21:00)
[2016-09-19] MEDS: PATCH REMOVAL 1 EA PATCH TD SCH (21:45)
[2016-09-20] MEDS: ACETAMINOPHEN 500 MG TAB PO SCH ×3 (05:13→22:07)
[2016-09-20 06:02] LABS: ANION GAP 3 mEq/L (8-16); CALCIUM 8.2 mg/dL (8.5-10.4); CARBON DIOXIDE 28 mEq/l (22-31); CHLORIDE 92 mEq/L (97-110); CREATININE 0.5 mg/dL (0.7-1.3); GLOMERULAR FILTRATION RATE > 60; GLUCOSE 96 mg/dL (70-100); POTASSIUM 4.8 mEq/L (3.5-5.2); SODIUM 123 mEq/L (134-144)
[2016-09-20 08:22] LABS: % IMMATURE GRANULYOCYTES 0.5 % (0.0-1.1); ABSOLUTE IMMATURE GRANULOCYTES 0.04 10^3/uL (0.00-0.10); ADD DIFF? NO; ADD MORPH? NO; ADD SCAN? NO; ATYPICAL LYMPHOCYTE FLAG 0 (0-99); FRAGMENT RBC FLAG 0 (0-99); HEMATOCRIT 25.7 % (40.0-51.0); HEMOGLOBIN 8.9 g/dL (13.7-17.5); LEFT SHIFT FLG 10 (0-99); LIPEMIA HEMOLYSIS FLAG 90 (0-99); MEAN CELL HEMOGLOBIN 32.4 pg (27.9-34.1); MEAN CELL HEMOGLOBIN CONCENTR. 34.6 g/dL (32.4-36.7); MEAN CELL VOLUME 93.5 fL (81.5-99.8); PLATELET CLUMPS FLAG 0 (0-99); PLATELET COUNT 444 10^3/uL (150-400); RED BLOOD CELL COUNT 2.75 10^6/uL (4.40-6.38); RED CELL DISTRIBUTION WIDTH 13.1 % (11.5-15.2)
[2016-09-20] MEDS: FLUTICASONE/SALMETER 250/50MCG DISKUS IH SCH ×2 (08:58→22:08)
[2016-09-20] MEDS: ALBUTEROL 60 PUFFS/8 GM MDI IH PRN (08:58)
[2016-09-20] MEDS: CYCLOBENZAPRINE 10 MG TAB PO SCH ×3 (09:50→22:07)
[2016-09-20] MEDS: ENOXAPARIN 40 MG/0.4 ML SYR SC SCH (10:32)
[2016-09-20] MEDS: LIDOCAINE 5% 1 EA PATCH TD SCH (10:32)
[2016-09-20] MEDS: SENNOSIDES/DOCUSATE SODIUM TAB PO SCH ×2 (10:33→22:07)
--- NOTE | 2016-09-20 10:36 | HOSPPROG ---
Hospitalist Progress Note Assessment/Plan: 61 yo M w fall, R rib fractures, R hemopneumothorax, constipation and hyponatremia hyponatremia - given IVF fluid challenge yesterday and Na fell- this is c/w SIADH continue fluid restriction refusing ensure not confused nephrology eval possible R lung mass - plan to repeat CT here when chest tube out may have been pulm contusion acute R sided rib fx's/hemopneumothorax - w chest tube - trauma managing, currently on suction with aobut 1L total out anemia - continues to worsen - may have hit kristine today; follow tomorrow stable, no need for plan acute hypoxic resp failure d/t rib fx's, splinting - elevated d-dimer noted; doubt PE at this point given clinical improvement and he has been on lovenox ppx constipation mag citrate COPD, chronic proph: enox Subjective: case discussed w [facility]. cxr pending Objective: Vital Signs Temp Pulse Resp BP Pulse Ox 36.9 C 86 18 125/85 H 97 09/20/16 07:51 09/20/16 07:51 09/20/16 07:51 09/20/16 07:51 09/20/16 07:51 Laboratory Results 09/20/16 05:25 09/20/16 05:28 09/19/16 09/20/16 09/21/16 05:59 05:59 05:59 Intake Total 1000 1200 Output Total 350 1287 Balance 650 -87 PT 15.3 SEC (12.0-15.0) H 09/14/16 11:15 INR 1.21 (0.83-1.16) H 09/14/16 11:15 - Physical Exam Constitutional: no apparent distress, appears nourished Eyes: PERRL, anicteric sclera Ears, Nose, Mouth, Throat: moist mucous membranes, hearing normal Cardiovascular: regular rate and rhythym, no murmur, rub, or gallop Respiratory: no respiratory distress, no rales or rhonchi Gastrointestinal: normoactive bowel sounds, soft, non-tender abdomen Genitourinary: no bladder fullness, No smith in urethra Skin: warm, normal color Musculoskeletal: full muscle strength, no muscle tenderness Neurologic: AAOx3, sensation intact bilaterally ICD10 Worksheet Patient Problems: Problems Problem Status Onset Anemia Acute Hyponatremia Acute Pneumothorax with hemothorax, traumatic Acute Ribs, multiple fractures Acute Right pulmonary contusion Acute Subcutaneous emphysema due to trauma Acute
--- NOTE | 2016-09-20 10:51 | TRAUMAPN ---
- Problem/Surgery Performed (1) Pneumothorax with hemothorax, traumatic Assessment/Plan: PAD#4 Chest tube day# 2 09/16/2016 Assessment: There is a small PTX today with chest tube not incontinuity with PTX. There is no air leak. 250cc out since chest tube placement yesterday. This is stable. Will follow. Plan: Follow CXR and output. Suspect that he will need chest tube for at least 48 more hours. Will consider F/U CT after chest tube is out to re-assess possible neoplasia vs contusion. 09/17/2016 Assessment: The PTX is smaller on CXR. Nursing noted an air leak with cough this AM. Chest tube drainage ~ 250cc serosanguineous fluid for last 24 hours. Plan: Continue chest tube suction and obtain CXR in AM. 09/18/2016 Assessment: Tiny persistent apical PTX. No air leak. Serous chest tube drainage Plan: Chest tube off suction 09/20/2016 Early yesterday morning chest tube became disconnected for a period of time. The tube was cleaned and reconnected. Antibiotics started. Assessment: CXR pending. Lungs clear to auscultation. No leak noted. Note: platelets up to 444K! I am concerned about an occult infection. Plan: If no significant PTX today will take off suction and reassess in AM. Qualifiers: Encounter type: E (2) Ribs, multiple fractures Assessment/Plan: 09/16/2016 Assessment: Ribs not currently an issue. Doubt that surgical fixation will become necessary. 09/17/2016 Still not an issue 09/18/2016 Still not an issue 09/20/2016 Still not an issue Qualifiers: Encounter type: initial encounter Fracture type: closed Laterality: right Fracture healing: F Qualified Code(s): S22.41XA - Multiple fractures of ribs, right side, initial encounter for closed fracture (3) Hyponatremia Assessment/Plan: 09/16/2016 On fluid restriction. Will follow Na. 09/17/2016 Na up to 128 09/18/[address] See [address]. Sheth's note regarding plan. 09/20/2016 SIADH diagnosed (4) Anemia Assessment/Plan: 09/16/2016 Presume secondary to injury and lab draw. will follow 09/17/2016 Seems to be stabilizing. will follow. 09/18/2016 Stabilizing 09/20/2016 Stable Qualifiers: Anemia type: unspecified type Iron deficiency anemia type: I Vitamin B12 deficiency anemia type: V Folate deficiency anemia type: F Bone marrow failure anemia type: B Hemolytic anemia type: H Other causes of anemia: O Qualified Code(s): D64.9 - Anemia, unspecified Assessment/Plan: 09/17/2016 He plans not to return to 9200 feet initially but rather to go to [place] for 30 days post discharge. Subjective: No complaints Objective: Vital Signs Temp Pulse Resp BP Pulse Ox 36.9 C 86 18 125/85 H 97 09/20/16 07:51 09/20/16 07:51 09/20/16 07:51 09/20/16 07:51 09/20/16 07:51 Laboratory Results 09/20/16 05:25 09/20/16 05:28 09/19/16 09/20/16 09/21/16 05:59 05:59 05:59 Intake Total 1000 1200 Output Total 350 1287 Balance 650 -87 PT 15.3 SEC (12.0-15.0) H 09/14/16 11:15 INR 1.21 (0.83-1.16) H 09/14/16 11:15 - C-Spine Clearance Cervical Spine Cleared: Yes Physical Exam - Physical Exam General Appearance: alert, no apparent distress Neck: non-tender, full range of motion, supple Respiratory: lungs clear, normal breath sounds, other (No air leak. output up due to suction but it is serous.) Cardiac/Chest: regular rate, rhythm Abdomen: non-tender, soft Male Genitalia: deferred Rectal: deferred Back: Normal inspection Skin: normal color, warm/dry Neuro/Psych: alert, normal mood/affect, oriented x 3 Time Spent w/Patient (minutes): 25
--- NOTE | 2016-09-20 11:43 | GCON ---
[f rep st] CONSULTATION NEPHROLOGY CONSULTATION DATE OF CONSULTATION: 09/20/2016 REASON FOR CONSULTATION: Hyponatremia. HISTORY OF PRESENT ILLNESS: This is a pleasant 61-year-old male with no real past medical history w ho originally presented for admission on September 11 secondary to thoracic injuries from a fall. His tory is obtained per the patient, who appears to be a reasonable historian. Additional history is o btained from the medical staff and the medical records. As noted, the patient presented on September 11. At that time, he was found to have rib fractures and a hemothorax. He had suffered this in a fall against his counter top. He had presented in late af ternoon, and the injury had occurred the previous day. At the time of his presentation, the patient was hemodynamically stable, but he did have a sodium level that was noted to be 118. The only prev ious sodium level in the computer is a level of 132 in 2013. The patient's renal function is normal . The patient also had a hemoglobin performed at that time, which was 16.8. During the course of [facility] hospitalization, the patient had remained hemodynamically stable. He has not recently had major chest tube drainage; and in general, his intake has been greater than his output. In spite of these issues, his serum sodium has remained low and is presently 123. He had gotten up to 132 early in [facility] hospitalization, but it once again began to decline. He is currently on a 1 L fluid restriction. Attempts have been made to increase his solute intake. Initial urine sodiums have been obtained a nd have been moderately low. His urines have been extremely concentrated, with osmolalities in the 700s. The patient is unaware of any past history of hyponatremia. He has not had a history of adrenal or thyroid disease. He is not on medications that are particularly suspect, although he is on Flexeril . There were some abnormalities in his initial pulmonary imaging that could potentially be concerni ng for an infiltrative process in the right lower lobe. Plans are made for following this. As rela paul to the above issues, we are asked by the primary service to assist in the patient's renal diagno sis and management. PAST MEDICAL HISTORY: 1. Heavy tobacco use. 2. Alcohol use. 3. Radius fracture. ALLERGIES: No known drug allergies. CURRENT MEDICATIONS: Tylenol p.r.n., albuterol p.r.n., Ancef 1 g IV q.8 hours, Flexeril 10 mg t.i.d ., enoxaparin daily, lactulose p.r.n., Ativan p.r.n., milk of magnesia p.r.n., MiraLAX p.r.n., Senok ot b.i.d. FAMILY HISTORY: Positive for coronary artery disease and cancer. SOCIAL HISTORY: The patient was born in [place], [place]. He has been in [place] for 10 years. He lives near [place]. 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 He smokes 1 pack of cigarettes per day and has done so since age 16. He drinks 4 beers at night. REVIEW OF SYSTEMS: GENERAL: The patient states he has had a perhaps 5-pound weight loss in the pas t year. He denies fevers, chills, or anorexia. He does not have frequent headaches. He denies vis ual disturbances. He occasionally has rhinitis. He denies a sore throat. He has an occasional cou gh but does not describe this as being anything that has been increasing lately. He denies shortnes s of breath. He denies chest pain or palpitations. He denies abdominal pain, constipation, or diar hero. He denies changes in urinary habits. He has to urinate twice at night. He denies lower extr emity edema. He denies numbness in his fingers or toes. He denies skin rashes or skin lesions. He has no history of thyroid disease or diabetes. PHYSICAL EXAM: GENERAL: The patient is appropriate and alert. VITAL SIGNS: Temperature afebrile, pulse 89, blood pressure 126/75. HEENT: Eyes: Sclerae clear. Oropharynx: Clear. NECK: No lym phadenopathy or thyromegaly. LUNGS: He does have rales heard in both bases and through the right m iddle lobe. CARDIOVASCULAR: Regular rate and rhythm without gallops or rubs. ABDOMEN: Normoactiv e bowel sounds. Nontender. No organomegaly. /RECTAL: Deferred. EXTREMITIES: No lower extremi ty edema. INTEGUMENTARY: Generally clear. NEURO: No focal findings. LABORATORY TESTS: White count 7.3, hemoglobin 8.9, hematocrit 25, platelet count 444. Sodium 132, potassium 4.8, bicarb 28. Urine studies: Urine sodium 24, urine osmolality 763 on September 16. IMPRESSION AND PLAN: Severe hyponatremia. The patient does not have any major past history of hypo natremia. He did present with a normal serum albumin level and a normal hemoglobin. His renal func tion appears normal. Thyroid studies have been performed and appear normal. The patient does not appear to drink excessive amounts of fluid per his history. Beer potomania see ms unlikely given his serum albumin level. The fact that he has not corrected would suggest that he now has vasopressin release due to a different stimulus. This could be SIADH, ectopic from a malig joseph, or due to hemodynamic factors. While his urine sodiums have been relatively low, he hemodyna mically appears stable and his input has been greater than his output, even in light of chest tube o utput. Thus, this appears to be SIADH or ectopic production. Given possible concerns of a right lo wer lobe mass, this does need to be considered as a possible source. In terms of medications, the o nly suspect medication would possibly be Flexeril. I educated the patient relating to the process of hyponatremia. He now has a better understanding o f this. We will work to tighten his fluid restriction and increase his solute intake. We will rech perla urine studies. At this point, he certainly is not going to have rapid correction, so I do not t hink he needs markedly frequent electrolyte studies. The patient states he is limiting his toleranc e for hospitalization. Thus, we want to make sure he is ready for discharge fairly soon. I am [place] g to go ahead and add in sodium tablets now as we continue to follow. Thank you for allowing us to participate in this gentleman's care. We will continue to follow him c losely with you. /[id number]/MODL
[2016-09-20 15:49] LABS: RANDOM URINE POTASSIUM 30.1 mEq/L (0.5-35.0)
[2016-09-20] MEDS: SODIUM CHLORIDE 1,000 MG TAB PO SCH (18:27)
[2016-09-20] MEDS: PATCH REMOVAL 1 EA PATCH TD SCH (22:30)
[2016-09-21] MEDS: ACETAMINOPHEN 500 MG TAB PO SCH ×3 (05:29→21:22)
[2016-09-21 05:38] LABS: % IMMATURE GRANULYOCYTES 1.1 % (0.0-1.1); ABSOLUTE IMMATURE GRANULOCYTES 0.07 10^3/uL (0.00-0.10); ADD DIFF? NO; ADD MORPH? NO; ADD SCAN? NO; ATYPICAL LYMPHOCYTE FLAG 80 (0-99); FRAGMENT RBC FLAG 0 (0-99); HEMATOCRIT 26.1 % (40.0-51.0); LEFT SHIFT FLG 10 (0-99); LIPEMIA HEMOLYSIS FLAG 90 (0-99); MEAN CELL HEMOGLOBIN 31.7 pg (27.9-34.1); MEAN CELL HEMOGLOBIN CONCENTR. 34.5 g/dL (32.4-36.7); MEAN CELL VOLUME 91.9 fL (81.5-99.8); MEAN PLATELET VOLUME 8.5 fL (8.7-11.7); PLATELET CLUMPS FLAG 0 (0-99); PLATELET COUNT 525 10^3/uL (150-400); RED BLOOD CELL COUNT 2.84 10^6/uL (4.40-6.38); RED CELL DISTRIBUTION WIDTH 12.8 % (11.5-15.2)
[2016-09-21 05:54] LABS: ANION GAP 5 mEq/L (8-16); CALCIUM 8.3 mg/dL (8.5-10.4); CARBON DIOXIDE 28 mEq/l (22-31); CHLORIDE 92 mEq/L (97-110); CREATININE 0.6 mg/dL (0.7-1.3); GLOMERULAR FILTRATION RATE > 60; GLUCOSE 101 mg/dL (70-100); POTASSIUM 4.6 mEq/L (3.5-5.2); SODIUM 125 mEq/L (134-144)
[2016-09-21 06:21] LABS: CORTISOL-AM 11.1 ug/dL (4.5-22.7)
[2016-09-21] MEDS: PATCH REMOVAL 1 EA PATCH TD SCH ×2 (06:26→22:13)
--- NOTE | 2016-09-21 07:44 | TRAUMAPN ---
- Problem/Surgery Performed (1) Pneumothorax with hemothorax, traumatic Assessment/Plan: PAD#4 Chest tube day# 2 09/16/2016 Assessment: There is a small PTX today with chest tube not incontinuity with PTX. There is no air leak. 250cc out since chest tube placement yesterday. This is stable. Will follow. Plan: Follow CXR and output. Suspect that he will need chest tube for at least 48 more hours. Will consider F/U CT after chest tube is out to re-assess possible neoplasia vs contusion. 09/17/2016 Assessment: The PTX is smaller on CXR. Nursing noted an air leak with cough this AM. Chest tube drainage ~ 250cc serosanguineous fluid for last 24 hours. Plan: Continue chest tube suction and obtain CXR in AM. 09/18/2016 Assessment: Tiny persistent apical PTX. No air leak. Serous chest tube drainage Plan: Chest tube off suction 09/20/2016 Early yesterday morning chest tube became disconnected for a period of time. The tube was cleaned and reconnected. Antibiotics started. Assessment: CXR pending. Lungs clear to auscultation. No leak noted. Note: platelets up to 444K! I am concerned about an occult infection. Plan: If no significant PTX today will take off suction and reassess in AM. 09/21/2016 Assessment: There is a minimal PTX that is not incontinuity with the chest tube. Pleurovac has been knocked over . I feel that removing the risk of a chest tube is important. Platelets still increasing Plan: remove chest tube. F/u films in AM Qualifiers: Encounter type: E (2) Ribs, multiple fractures Assessment/Plan: 09/16/2016 Assessment: Ribs not currently an issue. Doubt that surgical fixation will become necessary. 09/17/2016 Still not an issue 09/18/2016 Still not an issue 09/20/2016 Still not an issue 2016 Ribs stable Qualifiers: Encounter type: initial encounter Fracture type: closed Laterality: right Fracture healing: F Qualified Code(s): S22.41XA - Multiple fractures of ribs, right side, initial encounter for closed fracture (3) Hyponatremia Assessment/Plan: 09/16/2016 On fluid restriction. Will follow Na. 09/17/2016 Na up to 128 09/18/[address]. Sheth's note regarding plan. 09/20/2016 SIADH diagnosed (4) Anemia Assessment/Plan: 09/16/2016 Presume secondary to injury and lab draw. will follow 09/17/2016 Seems to be stabilizing. will follow. 09/18/2016 Stabilizing 09/20/2016 Stable Qualifiers: Anemia type: unspecified type Iron deficiency anemia type: I Vitamin B12 deficiency anemia type: V Folate deficiency anemia type: F Bone marrow failure anemia type: B Hemolytic anemia type: H Other causes of anemia: O Qualified Code(s): D64.9 - Anemia, unspecified Assessment/Plan: 09/17/2016 He plans not to return to 9200 feet initially but rather to go to [place] for 30 days post discharge. Subjective: No stool today Objective: Vital Signs Temp Pulse Resp BP Pulse Ox 36.6 C 88 18 115/75 95 09/21/16 04:00 09/21/16 04:00 09/21/16 04:00 09/21/16 04:00 09/21/16 04:00 Laboratory Results 09/21/16 05:29 09/21/16 05:29 09/20/16 09/21/16 09/22/16 05:59 05:59 05:59 Intake Total 1200 890 Output Total 1287 825 Balance -87 65 PT 15.3 SEC (12.0-15.0) H 09/14/16 11:15 INR 1.21 (0.83-1.16) H 09/14/16 11:15 - C-Spine Clearance Cervical Spine Cleared: Yes Physical Exam - Physical Exam General Appearance: alert, no apparent distress Neck: non-tender, full range of motion, supple, normal inspection Respiratory: lungs clear, normal breath sounds Cardiac/Chest: regular rate, rhythm Abdomen: normal bowel sounds, non-tender, soft Male Genitalia: deferred Rectal: deferred Back: Normal inspection Skin: normal color, warm/dry, cyanosis Neuro/Psych: no motor/sensory deficits, alert, normal mood/affect, oriented x 3 Time Spent w/Patient (minutes): 25
[2016-09-21] MEDS: FLUTICASONE/SALMETER 250/50MCG DISKUS IH SCH ×2 (08:34→15:46)
[2016-09-21] MEDS: LIDOCAINE 5% 1 EA PATCH TD SCH (08:51)
[2016-09-21] MEDS: SODIUM CHLORIDE 1,000 MG TAB PO SCH ×2 (08:53→17:54)
[2016-09-21] MEDS: ENOXAPARIN 40 MG/0.4 ML SYR SC SCH (08:53)
[2016-09-21] MEDS: CYCLOBENZAPRINE 10 MG TAB PO SCH ×3 (08:53→21:22)
[2016-09-21] MEDS: SENNOSIDES/DOCUSATE SODIUM TAB PO SCH ×2 (09:01→21:22)
--- NOTE | 2016-09-21 11:57 | SOAPPROG ---
SOAP Progress Note Assessment/Plan: Assessment: 1. Hyponatremia SIADH vs ectopic production. Improving with NaCl tabs and fluid restriction. Uosm improved. 2. Pulmonary Shira high CRP. Needs additional evaluation Plan: 09/21/16 11:55 Subjective: Doing better. Chest Tube DC'd. Objective: Vital Signs Temp Pulse Resp BP Pulse Ox 36.6 C 117 H 14 139/89 H 88 L 09/21/16 07:46 09/21/16 08:35 09/21/16 08:35 09/21/16 07:46 09/21/16 08:35 Laboratory Results 09/21/16 05:29 09/21/16 05:29 09/20/16 09/21/16 09/22/16 05:59 05:59 05:59 Intake Total 1200 890 Output Total 1287 825 Balance -87 65 PT 15.3 SEC (12.0-15.0) H 09/14/16 11:15 INR 1.21 (0.83-1.16) H 09/14/16 11:15 Physical Exam - Physical Exam General Appearance: no apparent distress Respiratory: crackles (RLL) Cardiac/Chest: regular rate, rhythm Extremities: normal inspection Neuro/Psych: oriented x 3 ICD10 Worksheet Patient Problems: Problems Problem Status Onset Anemia Acute Hyponatremia Acute Pneumothorax with hemothorax, traumatic Acute Ribs, multiple fractures Acute Right pulmonary contusion Acute Subcutaneous emphysema due to trauma Acute
[2016-09-21] MEDS ORDERED: IOPAMIDOL (ISOVUE-300) 100 ML BTL IV ONE (12:11)
[2016-09-21] MEDS: ALBUTEROL 60 PUFFS/8 GM MDI IH PRN ×2 (13:52→15:46)
--- NOTE | 2016-09-21 13:52 | HOSPPROG ---
Hospitalist Progress Note Assessment/Plan: 61 yo M w fall, R rib fractures, R hemopneumothorax, constipation and hyponatremia hyponatremia - given IVF fluid challenge yesterday and Na fell- this is c/w SIADH continue fluid restriction refusing ensure not confused nephrology eval possiblCT concerning for mass radiology read pending discussed w patient acute R sided rib fx's/hemopneumothorax - w chest tube - trauma managing, currently on suction with aobut 1L total out anemia - continues to worsen - may have hit kristine today; follow tomorrow stable, no need for plan acute hypoxic resp failure d/t rib fx's, splinting - elevated d-dimer noted; doubt PE at this point given clinical improvement and he has been on lovenox ppx constipation mag citrate COPD, chronic proph: enox Subjective: case d/w dr flores. chest CT w residual R pneumothorax and possible R LL mass (interp by me). [facility] radiology read Objective: Vital Signs Temp Pulse Resp BP Pulse Ox 36.8 C 99 18 117/85 H 90 L 09/21/16 11:56 09/21/16 11:56 09/21/16 11:56 09/21/16 11:56 09/21/16 11:56 Laboratory Results 09/21/16 05:29 09/21/16 05:29 09/20/16 09/21/16 09/22/16 05:59 05:59 05:59 Intake Total 1200 890 Output Total 1287 825 Balance -87 65 PT 15.3 SEC (12.0-15.0) H 09/14/16 11:15 INR 1.21 (0.83-1.16) H 09/14/16 11:15 - Physical Exam Constitutional: no apparent distress, appears nourished Eyes: PERRL, anicteric sclera Ears, Nose, Mouth, Throat: moist mucous membranes, hearing normal Cardiovascular: regular rate and rhythym, no murmur, rub, or gallop Respiratory: no respiratory distress, no rales or rhonchi Gastrointestinal: normoactive bowel sounds, soft, non-tender abdomen Genitourinary: No smith in urethra Skin: warm, normal color Musculoskeletal: full muscle strength, no muscle tenderness Neurologic: AAOx3 ICD10 Worksheet Patient Problems: Problems Problem Status Onset Anemia Acute Hyponatremia Acute Pneumothorax with hemothorax, traumatic Acute Ribs, multiple fractures Acute Right pulmonary contusion Acute Subcutaneous emphysema due to trauma Acute
[2016-09-21] MEDS ORDERED: guaiFENesin/CODEINE PHOS 10 ML UDCUP PO PRN (20:29)
[2016-09-22] MEDS: ALBUTEROL 60 PUFFS/8 GM MDI IH PRN ×2 (02:58→10:15)
[2016-09-22 04:49] LABS: % IMMATURE GRANULYOCYTES 1.1 % (0.0-1.1); ABSOLUTE IMMATURE GRANULOCYTES 0.08 10^3/uL (0.00-0.10); ADD DIFF? NO; ADD MORPH? NO; ADD SCAN? NO; ATYPICAL LYMPHOCYTE FLAG 0 (0-99); FRAGMENT RBC FLAG 0 (0-99); HEMATOCRIT 26.8 % (40.0-51.0); HEMOGLOBIN 9.4 g/dL (13.7-17.5); LEFT SHIFT FLG 0 (0-99); LIPEMIA HEMOLYSIS FLAG 90 (0-99); MEAN CELL HEMOGLOBIN 32.5 pg (27.9-34.1); MEAN CELL HEMOGLOBIN CONCENTR. 35.1 g/dL (32.4-36.7); MEAN CELL VOLUME 92.7 fL (81.5-99.8); MEAN PLATELET VOLUME 8.5 fL (8.7-11.7); PLATELET CLUMPS FLAG 0 (0-99); PLATELET COUNT 593 10^3/uL (150-400); RED BLOOD CELL COUNT 2.89 10^6/uL (4.40-6.38); RED CELL DISTRIBUTION WIDTH 13.2 % (11.5-15.2)
[2016-09-22] MEDS: ACETAMINOPHEN 500 MG TAB PO SCH (05:07)
[2016-09-22 05:09] LABS: ANION GAP 6 mEq/L (8-16); CALCIUM 8.7 mg/dL (8.5-10.4); CARBON DIOXIDE 28 mEq/l (22-31); CHLORIDE 94 mEq/L (97-110); CREATININE 0.6 mg/dL (0.7-1.3); GLOMERULAR FILTRATION RATE > 60; GLUCOSE 92 mg/dL (70-100); SODIUM 128 mEq/L (134-144)
[2016-09-22] MEDS: HYDROmorphONE/DILAUDID 2 MG TAB PO PRN (05:12)
[2016-09-22] MEDS: LIDOCAINE 5% 1 EA PATCH TD SCH (08:26)
[2016-09-22] MEDS: CYCLOBENZAPRINE 10 MG TAB PO SCH (08:26)
[2016-09-22] MEDS: ENOXAPARIN 40 MG/0.4 ML SYR SC SCH (08:26)
[2016-09-22] MEDS: SODIUM CHLORIDE 1,000 MG TAB PO SCH (08:26)
[2016-09-22] MEDS: SENNOSIDES/DOCUSATE SODIUM TAB PO SCH (08:26)
[2016-09-22] MEDS: FLUTICASONE/SALMETER 250/50MCG DISKUS IH SCH (10:14)
--- NOTE | 2016-09-22 10:27 | HOSPPROG ---
Hospitalist Progress Note Assessment/Plan: 61 yo M w fall, R rib fractures, R hemopneumothorax, constipation and hyponatremia hyponatremia - given IVF fluid challenge yesterday and Na fell- this is c/w SIADH continue fluid restriction refusing ensure not confused improved w salt tabs and fluid restriction would continue this for 2 weeks on dc RLL mass: extensive review of images rll mass is improving and may well be pulm contusion high risk for lung CA noted at this point, the plan is for repeat CT in 1 month he can follow up w dr de dios acute R sided rib fx's/hemopneumothorax - w chest tube - trauma managing, currently on suction with aobut 1L total out anemia - continues to worsen - may have hit kristine today; follow tomorrow stable, no need for plan acute hypoxic resp failure d/t rib fx's, splinting - elevated d-dimer noted; doubt PE at this point given clinical improvement and he has been on lovenox ppx constipation mag citrate COPD, chronic proph: enox Subjective: CT images reviewed/interpreted by me. case discussed w dee moctezuma, lanre flores Objective: Vital Signs Temp Pulse Resp BP Pulse Ox 36.7 C 91 16 131/87 H 94 09/22/16 07:53 09/22/16 07:53 09/22/16 07:53 09/22/16 07:53 09/22/16 07:53 Laboratory Results 09/22/16 04:35 09/22/16 04:35 09/21/16 09/22/16 09/23/16 05:59 05:59 05:59 Intake Total 890 600 120 Output Total 825 400 Balance 65 200 120 PT 15.3 SEC (12.0-15.0) H 09/14/16 11:15 INR 1.21 (0.83-1.16) H 09/14/16 11:15 - Physical Exam Constitutional: no apparent distress, appears nourished Eyes: PERRL, anicteric sclera Ears, Nose, Mouth, Throat: moist mucous membranes, hearing normal Cardiovascular: regular rate and rhythym, no murmur, rub, or gallop Respiratory: no respiratory distress, no rales or rhonchi Gastrointestinal: normoactive bowel sounds, soft, non-tender abdomen Genitourinary: No smith in urethra Skin: warm, normal color Musculoskeletal: full muscle strength, no muscle tenderness Neurologic: AAOx3 ICD10 Worksheet Patient Problems: Problems Problem Status Onset Anemia Acute Hyponatremia Acute Pneumothorax with hemothorax, traumatic Acute Ribs, multiple fractures Acute Right pulmonary contusion Acute Subcutaneous emphysema due to trauma Acute
--- NOTE | 2016-09-22 10:59 | SOAPPROG ---
SOAP Progress Note Assessment/Plan: Assessment: 1. Hyponatremia Sam is doing better. He is to go today. He will be DC'd on salt tablets and a 1.5L fluid restriction. He will get weekly labs and follow up in our office. -Weekly Random urine sodium, Cr, and osmol, and BMP -Follow up Dr. Pike [phone] -Fluid restriction 1.5L all fluids daily Subjective: Doing better Objective: Vital Signs Temp Pulse Resp BP Pulse Ox 36.7 C 105 H 16 131/87 H 89 L 09/22/16 07:53 09/22/16 10:26 09/22/16 10:26 09/22/16 07:53 09/22/16 10:26 Laboratory Results 09/22/16 04:35 09/22/16 04:35 09/21/16 09/22/16 09/23/16 05:59 05:59 05:59 Intake Total 890 600 120 Output Total 825 400 Balance 65 200 120 PT 15.3 SEC (12.0-15.0) H 09/14/16 11:15 INR 1.21 (0.83-1.16) H 09/14/16 11:15 Physical Exam - Physical Exam General Appearance: no apparent distress Respiratory: lungs clear Cardiac/Chest: regular rate, rhythm Extremities: normal inspection Neuro/Psych: oriented x 3 ICD10 Worksheet Patient Problems: Problems Problem Status Onset Anemia Acute Hyponatremia Acute Pneumothorax with hemothorax, traumatic Acute Ribs, multiple fractures Acute Right pulmonary contusion Acute Subcutaneous emphysema due to trauma Acute
--- NOTE | 2016-09-22 11:28 | PDIAF ---
- Diagnosis Diagnosis: R pneumothorax Code Status: Full Code - Medication Management Discharge Medications: Medications to Continue on Transfer Albuterol [Proventil Inhaler HFA (*)] 1 - 2 puffs IH Q4H PRN 09/11/16 [Last Taken 09/11/16] Fluticasone/Salmeter 250/50Mcg [Advair 250/50 (*)] 1 puffs IH BID 09/11/16 [ Last Taken 09/11/16] Ibuprofen [Motrin (*)] 200 - 400 mg PO DAILY PRN 09/11/16 [Last Taken 09/11/16 08:00 2 tabs] Tiotropium Inhaler [Spiriva Handihaler] 18 mcg IH DAILY 09/11/16 [Last Taken ] Acetaminophen [Tylenol ES 500 mg (*)] 1,000 mg PO Q8 tab 09/22/16 [Last Taken Unknown] HYDROmorphone HCL [Dilaudid 2 mg (*)] 2 - 4 mg PO Q4HRS PRN #20 tab 09/22/16 [ Last Taken Unknown] Lidocaine 5% [Lidoderm 5% Patch (*)] 1 ea TD DAILY #30 patch 09/22/16 [Last Taken Unknown] Lisinopril [PRINIVIL] 20 mg PO DAILY #30 tablet 09/22/16 [Last Taken Unknown] Sodium Chloride [Salt Tablet] 1,000 mg PO BIDMEAL #60 tab 09/22/16 [Last Taken Unknown] Discharge Medications: Refer to the Discharge Home Medication list for PRN reason. - Orders Oxygen: 1l - Labs/Radiology BMP Date: 09/30/16 (results to dr hankins) - Follow Up Care Current Providers and Referrals: Beck Romero MD [Primary Care Provider] - As per Instructions
[2016-09-22 11:43] VITALS: BP 127/83; PULSE 103; RESP 18; TEMP 98.4; O2SAT 92
--- NOTE | 2016-09-22 12:11 | TRAUMAPN ---
- Problem/Surgery Performed (1) Pneumothorax with hemothorax, traumatic Assessment/Plan: PAD#4 Chest tube day# 2 09/16/2016 Assessment: There is a small PTX today with chest tube not incontinuity with PTX. There is no air leak. 250cc out since chest tube placement yesterday. This is stable. Will follow. Plan: Follow CXR and output. Suspect that he will need chest tube for at least 48 more hours. Will consider F/U CT after chest tube is out to re-assess possible neoplasia vs contusion. 09/17/2016 Assessment: The PTX is smaller on CXR. Nursing noted an air leak with cough this AM. Chest tube drainage ~ 250cc serosanguineous fluid for last 24 hours. Plan: Continue chest tube suction and obtain CXR in AM. 09/18/2016 Assessment: Tiny persistent apical PTX. No air leak. Serous chest tube drainage Plan: Chest tube off suction 09/20/2016 Early yesterday morning chest tube became disconnected for a period of time. The tube was cleaned and reconnected. Antibiotics started. Assessment: CXR pending. Lungs clear to auscultation. No leak noted. Note: platelets up to 444K! I am concerned about an occult infection. Plan: If no significant PTX today will take off suction and reassess in AM. 09/21/2016 Assessment: There is a minimal PTX that is not incontinuity with the chest tube. Pleurovac has been knocked over . I feel that removing the risk of a chest tube is important. Platelets still increasing Plan: remove chest tube. F/u films in AM 09/22/2016 Assessment: Increased platelet count yesterday and elevated CRP prompted a CT of the chest to look for an empyema. None was found. There is a lung mass but it seems to be in a different location. That makes a malignancy less likely. He had a cough that was only intermittently productive of a small amount of sputum. US unremarkable. Chest tube site looks good. Lung up. VSS. No source of infection noted. Plan: Discharge Will F/u with Dr. Borrego Qualifiers: Encounter type: E (2) Ribs, multiple fractures Assessment/Plan: 09/16/2016 Assessment: Ribs not currently an issue. Doubt that surgical fixation will become necessary. 09/17/2016 Still not an issue 09/18/2016 Still not an issue 09/20/2016 Still not an issue 2016 Ribs stable 09/22/2016 ribs stable with depression of chest wall Qualifiers: Encounter type: initial encounter Fracture type: closed Laterality: right Fracture healing: F Qualified Code(s): S22.41XA - Multiple fractures of ribs, right side, initial encounter for closed fracture (3) Hyponatremia Assessment/Plan: 09/16/2016 On fluid restriction. Will follow Na. 09/17/2016 Na up to 128 09/18/[address] again[address] See Dr. Sheth's note regarding plan. 09/20/2016 SIADH diagnosed (4) Anemia Assessment/Plan: 09/16/2016 Presume secondary to injury and lab draw. will follow 09/17/2016 Seems to be stabilizing. will follow. 09/18/2016 Stabilizing 09/20/2016 Stable Qualifiers: Anemia type: unspecified type Iron deficiency anemia type: I Vitamin B12 deficiency anemia type: V Folate deficiency anemia type: F Bone marrow failure anemia type: B Hemolytic anemia type: H Other causes of anemia: O Qualified Code(s): D64.9 - Anemia, unspecified Assessment/Plan: 09/17/2016 He plans not to return to [address] initially but rather to go to [facility] for 30 days post discharge. Objective: Vital Signs Temp Pulse Resp BP Pulse Ox 36.9 C 103 H 18 127/83 H 92 09/22/16 11:42 09/22/16 11:42 09/22/16 11:42 09/22/16 11:42 09/22/16 11:42 Laboratory Results 09/22/16 04:35 09/22/16 04:35 09/21/16 09/22/16 09/23/16 05:59 05:59 05:59 Intake Total 890 600 120 Output Total 825 400 Balance 65 200 120 PT 15.3 SEC (12.0-15.0) H 09/14/16 11:15 INR 1.21 (0.83-1.16) H 09/14/16 11:15 - C-Spine Clearance Cervical Spine Cleared: Yes Physical Exam - Physical Exam General Appearance: alert, no apparent distress Neck: non-tender, full range of motion, supple, normal inspection Respiratory: lungs clear, normal breath sounds, respiratory distress Cardiac/Chest: regular rate, rhythm Abdomen: normal bowel sounds, non-tender, soft Male Genitalia: deferred Rectal: deferred Back: Normal inspection Skin: normal color, warm/dry Neuro/Psych: alert, normal mood/affect, oriented x 3
--- NOTE | 2016-09-22 12:19 | GDS ---
[f rep st] DISCHARGE SUMMARY DISCHARGE DIAGNOSES: 1. Right hydro pneumothorax secondary to trauma. 2. Suspected right lower lobe mass. 3. Hyponatremia secondary to syndrome of inappropriate antidiuretic hormone secretion. 4. Hypertension. 5. Chronic obstructive pulmonary disease. 6. Tobacco use disorder. PROCEDURES DURING THIS ADMISSION: Right chest tube placement performed on 09/15/2016 with over 500 cc, and the chest tube was removed on the with stable chest x-rays. CONSULTATIONS: Medicine and Nephrology. HISTORY: Please see admission history and physical by Dr. Jono Borrego, as well as consultation by Dr. Rome Brady. The patient presented with a fall on the evening of the . He was found to be h yponatremic at 118 on presentation. He did take a thiazide as an outpatient. He was mentally alert . His hemothorax was managed. CAT scan showed a possible right lower lobe mass which was concernin g given his longstanding smoking history. This was followed with serial CT scans, and a CT scan on the revealed a decrease in size of the suspected mass. He has outpatient followup with Dr. Jono Borrego, who will re-image this in about a month and consider biopsy. Regarding his hyponatremia, he found to be SIADH. The patient was managed with fluid restriction, u ltimately addition of salt tabs 128 on the day of discharge. The patient was originally slated to go to the [facility], but ultimately has decided to go stay with a f riend near where he lives in [place]. He has a free place to stay. He is ambulating in the halls well without difficulties. He has been cleared by physical therapy. Greater than 30 minutes spent on the preparation of this discharge. /[id number]/MODL
--- NOTE | 2016-09-25 17:54 | PQFORM ---
PHYSICIAN QUERY FORM Needs Your Response This query form is being sent to you to assure this patient record is coded properly. Please respond to the question below: OVERNIGHT STOCKER QUESTION: Dear Dr. Sheth, It is documented in Hospitalist progress notes dated 09/12-09/22 that the patient has the diagnosis of "Acute hypoxic respiratory failure." This is evidenced by "Sp02 of 81%, shortness of breath, and labored breathing secondary to pneumothorax." After study, should the diagnosis of "Acute hypoxic respiratory failure" be included in the Discharge summary? Yes ___X___ No Other more appropriate diagnosis Unable to determine Thank you THANG [facility]ro[facility] HIM/Coding Dept. [phone] INSTRUCTIONS FOR RESPONSE: Answer question by clicking on the "Edit Document" button. Move cursor to area below the stars. When complete, hit "Save." Click on the "Sign" button, then click "Sign" again. Type in your PIN and hit "Enter." MTDD
== END 2016-09-22 13:23 | disposition home or self-care (01) | DRG 166 ==
LOC: F3E 17:33
PROVIDERS: ADMIT Surgery; ATTEND Surgery
PROC: 0W993ZZ Drainage of Right Pleural Cavity, Percutaneous Approach (ICD-10-PCS; 2016-09-14)
PROC: 0B9K30Z Drainage of Right Lung with Drainage Device, Percutaneous Approach (ICD-10-PCS; principal; 2016-09-15)
DX: S27.2XXA Traumatic hemopneumothorax, initial encounter (principal); J96.01 Acute respiratory failure with hypoxia; S22.41XA Multiple fractures of ribs, right side, initial encounter for closed fracture; E22.2 Syndrome of inappropriate secretion of antidiuretic hormone; I10 Essential (primary) hypertension; J44.9 Chronic obstructive pulmonary disease, unspecified; R91.1 Solitary pulmonary nodule; D64.9 Anemia, unspecified; Z72.0 Tobacco use; K59.00 Constipation, unspecified; W01.198A Fall on same level from slipping, tripping and stumbling with subsequent striking against other object, initial encounter; Y92.010 Kitchen of single-family (private) house as the place of occurrence of the external cause
CPT/HCPCS: 96374; 97116-GP; 97161-GP; 97165-GO; 97530-GO; 97530-GP; 97535-GO; J0690; J1170; J1650; J2250; J2405; J3010; Q9967

== ENCOUNTER 2017-08-05 10:05 | Inpatient (IN) | payer MEDICAID ==
--- NOTE | 2017-08-05 10:17 | EDPHY ---
H & P Time Seen by Provider: 08/05/17 10:09 HPI/ROS: CHIEF COMPLAINT: Left rib pain HISTORY OF PRESENT ILLNESS: The patient is a 61-year-old man with a history of COPD who wears 5 L of oxygen [place] to the bathroom last night he tripped in the dark and hit his left posterior ribs on the table. He had to call 911 using his computer. He does not have a phone. He was in significant pain in EMS gave 15 mg morphine during transport. He is now feeling much better but still has pain with deep inspiration. REVIEW OF SYSTEMS: Constitutional: denies: chills, fever, recent illness, recent injury EENTM: denies: blurred vision, double vision, nose congestion Respiratory: See HPI Cardiac: denies: chest pain, irregular heart rate, lightheadedness, palpitations Gastrointestinal/Abdominal: denies: abdominal pain, diarrhea, nausea, vomiting, blood streaked stools Genitourinary: denies: dysuria, frequency, hematuria, pain Musculoskeletal: See HPI Skin: denies: lesions, rash, jaundice, bruising Neurological: denies: headache, numbness, paresthesia, tingling, dizziness, weakness Hematologic/Lymphatic: denies: blood clots, easy bleeding, easy bruising Immunologic/allergic: denies: HIV/AIDS, transplant EXAM: GENERAL: Pain with deep inspiration, then HEAD: Atraumatic, normocephalic. EYES: Pupils equal round and reactive to light, extraocular movements intact, sclera anicteric, conjunctiva are normal. ENT: TMs normal, nares patent, oropharynx clear without exudates. Moist mucous membranes. NECK: Normal range of motion, supple without lymphadenopathy or JVD. LUNGS: Breath sounds clear to auscultation bilaterally and equal. No wheezes rales or rhonchi. HEART: Regular rate and rhythm without murmurs, rubs or gallops. ABDOMEN: Soft, nontender, normoactive bowel sounds. No guarding, no rebound. No masses appreciated. BACK: Crepitus to left posterior back, EXTREMITIES: Normal range of motion, no pitting or edema. No clubbing or cyanosis. NEUROLOGICAL: Cranial nerves II through XII grossly intact. Normal speech, normal gait. 5/5 strength, normal movement in all extremities, normal sensation PSYCH: Normal mood, normal affect. SKIN: Warm, dry, normal turgor, no visible rashes or lesions. Source: Patient, EMS Exam Limitations: No limitations - Medical/Surgical History Hx Asthma: Yes Hx Chronic Respiratory Disease: Yes Hx Diabetes: No Hx Cardiac Disease: No Hx Renal Disease: No Hx Cirrhosis: No Hx Alcoholism: No Hx HIV/AIDS: No Hx Splenectomy or Spleen Trauma: No Other PMH: COPD, HTN, tonsillectomy, asthma - Family History Significant Family History: No pertinent family hx - Social History Smoking Status: Current every day smoker Alcohol Use: Occasionally Constitutional: Initial Vital Signs Temperature (C) 36.6 C 08/05/17 10:05 Heart Rate 105 H 08/05/17 10:05 Respiratory Rate 20 08/05/17 10:05 Blood Pressure 150/105 H 08/05/17 10:05 O2 Sat (%) 85 L 08/05/17 10:05 O2 Delivery Mode Room Air Allergies/Adverse Reactions: No Known Allergies Allergy (Verified 08/05/17 10:13) Home Medications: Medication Instructions Recorded Albuterol [Proventil Inhaler HFA 1 - 2 puffs IH Q4H PRN 09/11/16 (*)] Fluticasone/Salmeter 250/50Mcg 1 puffs IH BID 09/11/16 [Advair 250/50 (*)] Tiotropium Inhaler [Spiriva 18 mcg IH DAILY 09/11/16 Handihaler] Acetaminophen [Tylenol ES 500 mg 1,000 mg PO Q8 PRN 08/05/17 (*)] Amoxicillin Trihydrate 500 mg PO BID PRN 08/05/17 [Amoxicillin] Herbals/Supplements -Info Only 1 ea PO DAILY 08/05/17 Lisinopril/Hctz 20/12.5MG 1 ea PO DAILY 08/05/17 [Zestoretic/Prinzide 20/12.5MG (*)] Medical Decision Making - Diagnostics Imaging: Discussed imaging studies w/ crew caller Radiologist ED Course/Re-evaluation: 10:45 a.m. the patient is doing well saturating 93% on his baseline 5 L of oxygen nasal cannula. He does have a pneumothorax on the left as well as several rib fractures minimally displaced. He has all multiple old fractures on the right. He had a chest tube a year ago after a fall. I suspect that this pneumothorax may improve with observation or needle thoracostomy verses chest tube but will consult the trauma service. 11:00 a.m. I discussed the case with Dr. Steiner who will come to evaluate. 11:20 a.m. the patient is going to have a chest tube placed and will be admitted to the trauma service. Differential Diagnosis: Partial list of the Differential diagnosis considered include but were not limited to; rib fractures, intoxication, pneumothorax and although unlikely based on the history and physical exam, I also considered tension pneumothorax, coronary artery disease. I discussed these differential diagnoses and the plan with the patient as well as the usual and expected course. The patient understands that the diagnosis is provisional and that in medicine we are not always correct and that further workup is often warranted. Usual and customary warnings were given. All of the patient's questions were answered. The patient was instructed to return to the emergency department should the symptoms at all worsen or return, otherwise to followup with the physician as we discussed. Critical Care Time: Critical care time spent by me, Dr. Claudio exclusive with this patient was 35 minutes, exclusive of the PA time exclusive of procedures. The organ system that was at risk was pulmonary and I gave diagnosis, consultation and admission to prevent worsening of the patient's condition - Data Points Laboratory Results: Laboratory Results 08/05/17 10:15 08/05/17 10:15 Medications Given: Hydrocodone Bitart/Acetaminophen ([employer] 5/325) 1 - 2 tab PO Q6HRS PRN PRN Reason: Pain, Moderate Able to Take PO Stop: 08/15/17 12:11 Last Admin: 08/06/17 10:55 Dose: 1 tab Albuterol (Ventolin Hfa Inhaler) 1 - 2 puffs IH Q4H PRN PRN Reason: Short of Breath/Dyspnea Stop: 02/01/18 12:47 Last Admin: 08/06/17 08:00 Dose: 2 puffs Lisinopril/HCTZ (Zestoretic) 1 ea PO DAILY OSMAR Stop: 02/01/18 12:59 Last Admin: 08/06/17 10:31 Dose: Not Given Ibuprofen (Motrin) 600 mg PO Q8HRS OSMAR Stop: 02/01/18 13:59 Last Admin: 08/06/17 13:27 Dose: 600 mg Ondansetron HCl (Zofran) 4 mg IVP Q4HRS PRN PRN Reason: Nausea/Vomiting, Can't Take PO Stop: 02/01/18 18:52 Last Admin: 08/05/17 20:22 Dose: 4 mg Fluticasone/Salmeterol (Advair) 1 puffs IH BID OSMAR Stop: 02/01/18 20:59 Last Admin: 08/06/17 08:00 Dose: 1 puffs Tiotropium [place] (Spiriva Handihaler) 18 mcg IH DAILY OSMAR Stop: 02/02/18 08:59 Last Admin: 08/06/17 07:59 Dose: 1 inh Discontinued Medications Fentanyl (Sublimaze) 25 mcg IVP EDNOW ONE Stop: 08/05/17 11:27 Last Admin: 08/05/17 11:53 Dose: Not Given Fentanyl (Sublimaze) 100 mcg IVP ONCE ONE Stop: 08/05/17 11:28 Last Admin: 08/05/17 11:31 Dose: 100 mcg Dextrose/Sodium Chloride (D5w 1/2 Ns) 1,000 mls @ 125 mls/hr IV CONT OSMAR Stop: 02/01/18 12:14 Last Admin: 08/06/17 04:15 Dose: 1,000 mls Departure - Departure Disposition: [facility] Inpatient Acute Clinical Impression: Ribs, multiple fractures Qualifiers: Encounter type: initial encounter Fracture type: closed Laterality: left Qualified Code(s): S22.42XA - Multiple fractures of ribs, left side, initial encounter for closed fracture Pneumothorax Qualifiers: Pneumothorax type: traumatic Encounter type: initial encounter Qualified Code(s ): S27.0XXA - Traumatic pneumothorax, initial encounter Condition: Critical
[2017-08-05 10:23] LABS: PLATELET COUNT 202 10^3/uL (150-400)
[2017-08-05 10:31] LABS: INR 0.95 (0.83-1.16); PROTIME(PATIENT) 12.9 SEC (12.0-15.0)
[2017-08-05] MEDS ORDERED: fentaNYL 100 MCG/2 ML INJ ONE (11:24)
[2017-08-05] MEDS ORDERED: fentaNYL 100 MCG/2 ML INJ IVP ONE ×2 (11:26→11:27)
[2017-08-05] MEDS ORDERED: DIAZEPAM 5 MG TAB PO PRN (12:12)
[2017-08-05] MEDS ORDERED: HYDROmorphone HCL/NS 0.5 MG/ML SYR IVP PRN (12:12)
[2017-08-05] MEDS ORDERED: ALBUTEROL 60 PUFFS/8 GM MDI IH PRN (12:48)
--- NOTE | 2017-08-05 12:50 | GHP ---
[f rep st] HISTORY AND PHYSICAL DATE OF ADMISSION: 08/05/2017 CHIEF COMPLAINT: Fall with left-sided chest trauma. HISTORY OF PRESENT ILLNESS: This is a 61-year-old male who lives in a cabin in [place], [place], with limited access to electricity and running water. In any event, the patient was urinating outside, came back in, tripped and sustained a mechanical fall, hit his left side. Denies any loss of consciousness. The patient does not have a telephone, but was able to use his computer to contact a friend who subsequently called EMS to bring him here. On arrival, he was alert, oriented, protecting his airway, breathing somewhat labored and with adequate circulation, complaining of left-sided chest pain. He states that the pain is worse with any kind of breathing, especially when he takes deep breaths. He does have underlying COPD and wears 5 L of oxygen in the winter, and weans this off in the borrero. Other than the left-sided chest pain, he has no complaints. Interestingly, the patient was admitted almost a year ago after sustaining a similar fall and right sided chest trauma. At that time, he had a chest tube placed and was in the hospital for a significant amount of time recovering. PAST MEDICAL HISTORY: COPD and hypertension. PAST SURGICAL HISTORY: Right-sided chest tube about a year ago for similar issue. CURRENT MEDICATIONS: Include Spiriva, lisinopril, hydrochlorothiazide, Advair, and albuterol. ALLERGIES: None. SOCIAL HISTORY: Daily drinker, daily smoker, about a half a pack, used to smoke about a pack. Marijuana about every other day. Denies any other illicit drug use. 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 FAMILY HISTORY: Noncontributory. REVIEW OF SYSTEMS: A full 10-point review was performed. PHYSICAL EXAMINATION: VITAL SIGNS: Temperature 36.6, blood pressure 150/105, heart rate 105, and he is 85% on room air. This bumped up to 93% on 5 L. CONSTITUTIONAL: He is in mild amount of distress, and he is uncomfortable. EYES: His pupils are equal, round, and reactive to light and accommodation. He has anicteric sclerae. His extraocular movements are intact. Ears, nose, mouth, throat: He has dry mucous membranes. His hearing is normal. He has poor dentition. CARDIOVASCULAR: He is tachycardic. No appreciable murmurs. No peripheral edema. RESPIRATORY: He is tender to palpation on the left side with diminished breath sounds. No obvious deformity. No crepitus appreciated. GI: Normoactive bowel sounds. Soft, nondistended, nontender. SKIN: Warm, normal color. No rashes or abrasions. MUSCULOSKELETAL: Full strength. No tenderness. Normal joint range of motion. NEUROLOGIC: He is alert and oriented x3. Cranial nerves 2-12 are intact. No weakness. No numbness. No signs of alcohol withdrawal. PSYCH: He is interacting appropriately. He is not anxious or encephalopathic. LYMPH/HEME/IMMUNOLOGIC: No cervical or groin lymphadenopathy appreciated. LABS: Leukocytosis to 11,000, H and H stable at 17 and 47, platelets 202. Coags are normal with an INR of 0.95. He has a low sodium at 129, potassium at 4.8, chloride is low at 90. Creatinine normal at 0.6. IMAGING: Includes a chest x-ray, the images which were personally reviewed, which showed a significant pneumothorax on the left, along with multiple left- sided rib fractures, numbering 5 through 9. ASSESSMENT AND PLAN: A 61-year-old male, status post mechanical fall with left- sided multiple rib fractures, as well as significant left-sided pneumothorax. After greeting the patient, I told him that it is necessary to place a chest tube to try to re-expand that left long. He is familiar with the procedure as he was admitted almost a year ago to the day after sustaining a right-sided chest trauma and subsequently needing an extended hospital stay and right-sided chest tube placement. We will plan to place a chest tube in the emergency department. Admit the patient. If his hyponatremia fails to resolve, we will likely need medical consultation for assistance with his metabolic dyscrasias. /[id number]/MODL MTDD
[2017-08-05] MEDS: LISINOPRIL/HCTZ 20/12.5MG 1 EA TAB PO SCH (14:17)
[2017-08-05] MEDS: IBUPROFEN 600 MG TAB PO SCH ×2 (14:17→23:41)
--- NOTE | 2017-08-05 14:36 | GOP ---
[f rep st] OPERATIVE REPORT DATE OF OPERATION: 08/05/2017 SURGEON: Eddy Steiner MD SUSTAINABLE DEVELOPMENT POLICY ANALYST: None. ANESTHESIA: 1% lidocaine with epinephrine. PREOPERATIVE DIAGNOSIS: Large left-sided pneumothorax. POSTOPERATIVE DIAGNOSIS: Large left-sided pneumothorax. PROCEDURE PERFORMED: Left-sided chest tube thoracostomy placement. FINDINGS: Good whoosh of air upon entering the left chest, tidaling well with air leak. SPECIMENS: None. ESTIMATED BLOOD LOSS: 5 cc. DESCRIPTION OF PROCEDURE: The patient was greeted in the emergency department. After performing a ABT Molecular Imaging time-out, the patient's left chest was prepped and draped in typical sterile fashion. I anesthetized the 5th, 6th intercostal space with 1% lidocaine buffered with bicarbonate. After successful anesthesia, I sharply opened the skin and dissected to the superior portion of the 5th intercostal space. I then entered the chest cavity bluntly, received a large whoosh of air. I successfully inserted a 28-Filipino straight chest tube into the apices of the left chest and attached it to the skin with an interrupted silk suture. It was then attached to the Pleur-Evac, was tidaling well and did have an air leak. The patient tolerated the procedure well. A sterile dressing was pl aced. A postplacement chest film showed evacuation of the pneumothorax without any other significant findings. DRAINS: A 28-Filipino straight chest tube into the left chest. /[id number]/MODL
--- NOTE | 2017-08-05 16:16 | PDMN ---
Medical Necessity Medical necessity: est los>2mn s/p mechanical fall w/multiple L rib fx's 5-9, significant pneumothorax and hyponatremia; requires chest tube; hx R pneumothorax w/chest tube requiring prolonged hospital stay, comorbid COPD and HTN; per order and H&P 08/05/17
[2017-08-05] MEDS ORDERED: PROMETHAZINE HCL 25 MG/ML INJ IVP PRN (18:53)
[2017-08-05] MEDS ORDERED: ONDANSETRON 4 MG/2 ML VIAL IVP PRN (18:53)
[2017-08-05] MEDS: HYDROCODONE/APAP 5/325 TAB PO PRN (20:19)
[2017-08-05] MEDS: D5W 1/2 NS 1,000 ML IV SCH (20:24)
[2017-08-05] MEDS: FLUTICASONE/SALMETER 250/50MCG DISKUS IH SCH (21:46)
[2017-08-06] MEDS: IBUPROFEN 600 MG TAB PO SCH ×3 (04:15→21:58)
[2017-08-06] MEDS: D5W 1/2 NS 1,000 ML IV SCH (04:15)
[2017-08-06] MEDS: HYDROCODONE/APAP 5/325 TAB PO PRN ×3 (04:16→20:44)
[2017-08-06] MEDS: TIOTROPIUM INHALER 18 MCG/DOSE 5 DOSE/MDI IH SCH (07:59)
[2017-08-06] MEDS: ALBUTEROL 200 PUFFS/18 GM MDI IH PRN (08:00)
[2017-08-06] MEDS: FLUTICASONE/SALMETER 250/50MCG DISKUS IH SCH ×2 (08:00→21:58)
--- NOTE | 2017-08-06 10:09 | ASMTCMCOM ---
CM Note CM Note Notes: Patient admitted with multiple L sided rib fractures and a L pneumothorax after falling outside his home. He is s/p chest tube placement yesterday. Per H&P, patient lives in [place] in [place]. When he was discharged from [facility] for a similar incident last year, he chose to discharge to a friend's house rather than SNF. PT/OT/Inpatient Rehab consults have been ordered for this admission; Case Managment will follow. Date Signed: 08/06/2017 10:08 AM Electronically Signed By:Kim Gaffney RN
[2017-08-06] MEDS: LISINOPRIL/HCTZ 20/12.5MG 1 EA TAB PO SCH (10:31)
[2017-08-06] MEDS ORDERED: 1/2 NS 1,000 ML IV SCH (11:00)
--- NOTE | 2017-08-06 11:06 | TRAUMAPN ---
Trauma Progress Note Assessment/Plan: 61 Y M s/p mechanical fall c L PTX. s/p tube thoracostomy. Doing well. No air leak. CXR in am. Seen and examined with Dr. Carver. S: Pain controlled. No SOB. O: alert, nad, oriented pupils equal and round no wob no air leak abd soft, nt ext wwp Objective: Vital Signs Temp Pulse Resp BP Pulse Ox 37.0 C 79 14 102/68 89 L 08/06/17 08:00 08/06/17 08:07 08/06/17 08:07 08/06/17 08:00 08/06/17 08:07 08/05/17 08/06/17 08/07/17 05:59 05:59 05:59 Intake Total 1475 Output Total 415 Balance 1060 PT 12.9 SEC (12.0-15.0) 08/05/17 10:15 INR 0.95 (0.83-1.16) 08/05/17 10:15
--- NOTE | 2017-08-06 22:25 | SOAPPROG ---
SOAP Progress Note Assessment/Plan: Assessment: TERTIARY EXAM COMPLETED THIS A.M. WITH SANDRA ELLIOTT DICTATED CHEST CLEAR AND SYMMETRIC WITH LEFT CHEST TUBE IN PLACE CHEST TUBE WITHOUT AIR LEAK AND MODERATE BLOODY DRAINAGE NEURO INTACT AND PHYSIOLOGIC COR REGULAR RHYTHM WITHOUT MURMURS EXTREMITIES FULL RANGE OF MOTION FULL PULSES SOME MINE MILD CLUBBING CHEST X-RAY PENDING Plan: CONTINUE CHEST TUBE SUCTION AND DRAINAGE 08/06/17 22:23 Objective: Vital Signs Temp Pulse Resp BP Pulse Ox 36.6 C 80 18 109/74 98 08/06/17 19:19 08/06/17 19:19 08/06/17 19:19 08/06/17 19:19 08/06/17 19:19 08/05/17 08/06/17 08/07/17 05:59 05:59 05:59 Intake Total 1475 240 Output Total 415 265 Balance 1060 -25 PT 12.9 SEC (12.0-15.0) 08/05/17 10:15 INR 0.95 (0.83-1.16) 08/05/17 10:15 ICD10 Worksheet Patient Problems: Problems Problem Status Onset Pneumothorax Acute Ribs, multiple fractures Acute Anemia Acute Hyponatremia Acute Pneumothorax with hemothorax, traumatic Acute Right pulmonary contusion Acute Subcutaneous emphysema due to trauma Acute
[2017-08-07] MEDS: IBUPROFEN 600 MG TAB PO SCH ×3 (06:20→22:14)
[2017-08-07] MEDS: HYDROCODONE/APAP 5/325 TAB PO PRN ×3 (06:21→19:56)
[2017-08-07] MEDS: TIOTROPIUM INHALER 18 MCG/DOSE 5 DOSE/MDI IH SCH (08:20)
[2017-08-07] MEDS: FLUTICASONE/SALMETER 250/50MCG DISKUS IH SCH ×2 (08:20→21:15)
[2017-08-07] MEDS: ALBUTEROL 200 PUFFS/18 GM MDI IH PRN ×3 (08:24→21:15)
[2017-08-07] MEDS: LISINOPRIL/HCTZ 20/12.5MG 1 EA TAB PO SCH (08:47)
--- NOTE | 2017-08-07 09:09 | SOAPPROG ---
SOAP Progress Note Assessment/Plan: Assessment: air leak resolved, can remove chest tube. likely dc tommorrow. repeat sodium ordered today. Plan: dc chest tube, re check film in am and discharge tomorrow if doing well. 08/07/17 09:08 Subjective: hurts to breasth. Objective: lungs clear with ronchi, chest tube minimal output, no air leak Vital Signs Temp Pulse Resp BP Pulse Ox 36.4 C 87 16 108/61 96 08/07/17 07:11 08/07/17 08:27 08/07/17 08:27 08/07/17 08:47 08/07/17 08:27 08/06/17 08/07/17 08/08/17 05:59 05:59 05:59 Intake Total 1475 240 Output Total 415 280 Balance 1060 -40 PT 12.9 SEC (12.0-15.0) 08/05/17 10:15 INR 0.95 (0.83-1.16) 08/05/17 10:15 ICD10 Worksheet Patient Problems: Problems Problem Status Onset Pneumothorax Acute Ribs, multiple fractures Acute Anemia Acute Hyponatremia Acute Pneumothorax with hemothorax, traumatic Acute Right pulmonary contusion Acute Subcutaneous emphysema due to trauma Acute
--- NOTE | 2017-08-07 15:18 | PDHOSCONS ---
History and Physical - Chief Complaint hyponatremia - History of Present Illness we have been asked by Trauma to consult regarding hyponatremia. This is a 61 yo male who had a fall and suffered polytrauma including left rib fractures and left pneumothorax. He was noted to have Hyponatremia on admission and it persists. He has a hx of HTN and he is on Lisinopril and HCTZ as a combination pill. BP has been soft. It appears that he may have been on 1/2 NS earlier, although he is not on this now He denies cp, SOB, palpitaons, or leg swelling. Pain is well controlled PMH/PSHx: HTN, COPD, Right sided pneumothorax, chest tube right side SocHx: daily tobacco, daily ETOH, Marijuana use fmHx: NC History Information - Allergies/Home Medication List Allergies/Adverse Reactions: No Known Allergies Allergy (Verified 08/05/17 10:13) Home Medications: Albuterol [Proventil Inhaler HFA (*)] 1 - 2 puffs IH Q4H PRN 09/11/16 [Last Taken 08/05/17] Fluticasone/Salmeter 250/50Mcg [Advair 250/50 (*)] 1 puffs IH BID 09/11/16 [ Last Taken 08/04/17 21:00] Tiotropium Inhaler [Spiriva Handihaler] 18 mcg IH DAILY 09/11/16 [Last Taken ] Acetaminophen [Tylenol ES 500 mg (*)] 1,000 mg PO Q8 PRN 08/05/17 [Last Taken Unknown] Amoxicillin Trihydrate [Amoxicillin] 500 mg PO BID PRN 08/05/17 [Last Taken Unknown] Herbals/Supplements -Info Only 1 ea PO DAILY 08/05/17 [Last Taken Unknown] Lisinopril/Hctz 20/12.5MG [Zestoretic/Prinzide 20/12.5MG (*)] 1 ea PO DAILY [Last Taken 08/04/17] I have personally reviewed and updated: medical history, social history - Social History Smoking Status: Current every day smoker Alcohol Use: Occasionally Review of Systems Review of Systems: ROS: 10pt was reviewed & negative except for what was stated in HPI & below Physical Exam Physical Exam: Temp Pulse Resp BP Pulse Ox 36.6 C 88 20 116/83 H 94 03/22/18 11:16 08/07/17 11:16 08/07/17 11:16 08/07/17 11:16 08/07/17 11:16 O2 (L/minute) 4 Constitutional: no apparent distress Eyes: PERRL, EOMI Ears, Nose, Mouth, Throat: moist mucous membranes, hearing normal Cardiovascular: regular rate and rhythym, No edema Respiratory: reduced air movement Gastrointestinal: normoactive bowel sounds, soft, non-tender abdomen Skin: warm Neurologic: AAOx3 Psychiatric: interacting appropriately, not anxious, not encephalopathic, thought process linear Lymph, Heme, Immunologic: No petechiae Lab Data & Imaging Review 08/05/17 10:15 08/07/17 10:31 WBC 11.53 10^3/uL (3.80-9.50) H 08/05/17 10:15 RBC 5.34 10^6/uL (4.40-6.38) 08/05/17 10:15 Hgb 16.9 g/dL (13.7-17.5) 08/05/17 10:15 Hct 47.0 % (40.0-51.0) 08/05/17 10:15 MCV 88.0 fL (81.5-99.8) 08/05/17 10:15 MCH 31.6 pg (27.9-34.1) 08/05/17 10:15 MCHC 36.0 g/dL (32.4-36.7) 08/05/17 10:15 RDW 15.8 % (11.5-15.2) H 08/05/17 10:15 Plt Count 202 10^3/uL (150-400) 08/05/17 10:15 MPV 8.8 fL (8.7-11.7) 08/05/17 10:15 Neut % (Auto) 90.0 % (39.3-74.2) H 08/05/17 10:15 Lymph % (Auto) 4.2 % (15.0-45.0) L 08/05/17 10:15 [place] % (Auto) 4.9 % (4.5-13.0) 08/05/17 10:15 Eos % (Auto) 0.3 % (0.6-7.6) L 08/05/17 10:15 Baso % (Auto) 0.1 % (0.3-1.7) L 08/05/17 10:15 Nucleat RBC Rel Count 0.0 % (0.0-0.2) 08/05/17 10:15 Absolute Neuts (auto) 10.37 10^3/uL (1.70-6.50) H 08/05/17 10:15 Absolute Lymphs (auto) 0.48 10^3/uL (1.00-3.00) L 08/05/17 10:15 Absolute Monos (auto) 0.57 10^3/uL (0.30-0.80) 08/05/17 10:15 Absolute Eos (auto) 0.04 10^3/uL (0.03-0.40) 08/05/17 10:15 Absolute Basos (auto) 0.01 10^3/uL (0.02-0.10) L 08/05/17 10:15 Absolute Nucleated RBC 0.00 10^3/uL (0-0.01) 08/05/17 10:15 Immature Gran % 0.5 % (0.0-1.1) 08/05/17 10:15 Immature Gran # 0.06 10^3/uL (0.00-0.10) 08/05/17 10:15 PT 12.9 SEC (12.0-15.0) 08/05/17 10:15 INR 0.95 (0.83-1.16) 08/05/17 10:15 APTT 30.3 SEC (23.0-38.0) 08/05/17 10:15 Sodium 126 mEq/L (135-145) L 08/07/17 10:31 Potassium 3.9 mEq/L (3.5-5.2) 08/07/17 10:31 Chloride 87 mEq/L (97-110) L 08/07/17 10:31 Carbon Dioxide 33 mEq/l (22-31) H D 08/07/17 10:31 Anion Gap 6 mEq/L (8-16) L 08/07/17 10:31 BUN 19 mg/dL (7-23) 08/07/17 10:31 Creatinine 0.8 mg/dL (0.7-1.3) 08/07/17 10:31 Estimated GFR > 60 08/07/17 10:31 Glucose 119 mg/dL (70-100) H 08/07/17 10:31 Calcium 8.5 mg/dL (8.5-10.4) 08/07/17 10:31 Ethyl Alcohol 81 mg/dL (0-10) H 08/05/17 10:15 Assessment & Plan Assessment: #Hyponatremia, likely SiADH -He's has low NA at baseline -volume status appears ok -d/c 1/2 NS, although not getting it -check urine studies for confirmation #HTN with soft BP -will hold Lisinopril and HCTZ given soft BP -Low BP may have contributed to his fall -May also be contributing to hyponatremia #Right Pneumothorax, #Right Ribs, multiple fractures #acute on chronic respiratory failure #COPD, does not appear to be in exacerbation Plan: thank you for this consult Hyponatremia and HTN mgmt per above repeat labs polytrauma w/u and mgmt per primary thank you for this consult, we will follow along.
--- NOTE | 2017-08-07 16:12 | ASMTCMCOM ---
CM Note CM Note Notes: Chest tube came out today. Pt feeling better. Met w/him to discuss dc plan. Pt lives in [place]. He states that he does not want to go to rehab. PT recommending home w/HC but unable to find HC that will go to this area (tried [facility], [facility], [facility]). Pt is open to HC but feels he will be ok without it. He has a few friends whom he says can help him if he needs it. Pt plans of following up w/MD and we discussed the importance of this. He will need for appt to be set up prior to dc and then he will need email address for MD office since email is his only way of communicating with them should he need to cancel or have medical questions. PT will see pt again to work on stair training and gait w/out AD since he does not normally use these at home. Pt does use home O2 and says he is all set up with this. Informed pt that CM will meet w/him again tomorrow after PT has seen him to verify that he has safe plan in going home. Date Signed: 08/07/2017 04:11 PM Electronically Signed By:Nayana Arora RN
--- NOTE | 2017-08-07 16:58 | ASMTCMCOM ---
CM Note CM Note Notes: addition to previous CM note: awaiting call back from [facility] to see if they are able to service [place] area. Date Signed: 08/07/2017 04:57 PM Electronically Signed By:Nayana Arora RN
[2017-08-08] MEDS: ALBUTEROL 200 PUFFS/18 GM MDI IH PRN ×2 (04:08→09:00)
[2017-08-08] MEDS: IBUPROFEN 600 MG TAB PO SCH (05:40)
[2017-08-08 07:36] VITALS: BP 124/81
[2017-08-08] MEDS: HYDROCODONE/APAP 5/325 TAB PO PRN (08:01)
[2017-08-08] MEDS: TIOTROPIUM INHALER 18 MCG/DOSE 5 DOSE/MDI IH SCH ×2 (09:01→09:09)
[2017-08-08] MEDS: FLUTICASONE/SALMETER 250/50MCG DISKUS IH SCH (09:01)
--- NOTE | 2017-08-08 15:19 | HOSPPROG ---
Hospitalist Progress Note Assessment/Plan: # Hyponatremia- suspect multifactorial - SIADH (urine sodium > 60) compounded by HCTZ as an outpt- Na 125 today pt asymptomatic - dc HCTZ - rx for lisinopril alone provided at dc -d/c 05/20 NS -follow outpt for lab check 2 weeks post dc # HTN - with low normal systolic pressures early in stay - SBP 120's currently -will hold HCTZ given hyponatremia - resume Lisinopril at home #Right Pneumothorax - CXR (personally reviewed and interpreted) no residual pneumothorax #Right Ribs, multiple fractures #acute on chronic respiratory failure #COPD, does not appear to be in exacerbation- oxygen saturations 93% on 3 L I have discussed the case with case management we will provide lisinopril prescription prior to patient returning home Subjective: feels well Objective: Vital Signs Temp Pulse Resp BP Pulse Ox 36.5 C 91 18 124/81 H 93 08/08/17 07:34 08/08/17 09:02 08/08/17 09:02 08/08/17 07:34 08/08/17 09:02 Laboratory Results 08/08/17 04:50 08/07/17 08/08/17 08/09/17 05:59 05:59 05:59 Intake Total 240 850 Output Total 280 950 200 Balance -40 -100 -200 PT 12.9 SEC (12.0-15.0) 08/05/17 10:15 INR 0.95 (0.83-1.16) 08/05/17 10:15 - Physical Exam Constitutional: no apparent distress Eyes: anicteric sclera Ears, Nose, Mouth, Throat: moist mucous membranes Cardiovascular: regular rate and rhythym Respiratory: no respiratory distress Gastrointestinal: normoactive bowel sounds Genitourinary: no bladder fullness Skin: warm Musculoskeletal: No asymmetric calves Neurologic: AAOx3 Psychiatric: interacting appropriately Lymph, Heme, Immunologic: no cervical LAD ICD10 Worksheet Patient Problems: Problems Problem Status Onset Anemia Acute Hyponatremia Acute Pneumothorax Acute Pneumothorax with hemothorax, traumatic Acute Ribs, multiple fractures Acute Right pulmonary contusion Acute Subcutaneous emphysema due to trauma Acute
--- NOTE | 2017-08-08 17:37 | PDDCSUM ---
Discharge Summary Discharge Summary: Admitting diagnosis traumatic pneumothorax secondary to fall from standing height Additional diagnoses COPD, hyponatremia and hypertension Consultations by Hospital Medicine for hyponatremia and hypertension recommendations were to hold hydrochlorothiazide and stay on lisinopril at home. Follow-up labs in 2 weeks as an outpatient The patient was admitted on 08/05/2017 for chest pain secondary to rib fractures on the left. Traumatic pneumothorax was noted. The patient had had previous similar injuries in August of 2016. Patient was admitted had closed tube thoracostomy placed for several days. This was removed without difficulty post pull film was without recurrence of pneumothorax. The patient had good respiratory effort although he was on 4 L of oxygen the patient has this is a baseline at home. On exam today the patient is alert oriented no distress is incision is dressed dry and intact he will keep this on for [address] a Band-Aid on this area until scabbed over. All questions were addressed The patient knows to call or return for shortness of breath or recurrent symptoms of chest pain. He will follow up with me in my office in approximately 1-2 weeks with pre chest x-ray and possible CMP.
--- NOTE | 2017-08-12 11:09 | PQFORM ---
PHYSICIAN QUERY FORM Needs Your Response This query form is being sent to you to assure this patient record is coded properly. Please respond to the question below: WET SUIT GLUER QUESTION: Dr. Diaz, The diagnosis of Acute on Chronic Respiratory Failure is documented in the Progress note dated 08/08/2017.~ Would this be appropriate as an additional diagnosis on the discharge summary? Yes Many thanks, Germaine Cortez, TOOTH INSPECTOR [facility]/Coding Department INSTRUCTIONS FOR RESPONSE: Answer question by clicking on the "Edit Document" button. Move cursor to area below the stars. When complete, hit "Save." Click on the "Sign" button, then click "Sign" again. Type in your PIN and hit "Enter." Yes MTDD
== END 2017-08-08 11:15 | disposition home or self-care (01) | DRG 199 ==
LOC: EDUNIT# → OBSVTOIN 12:12 → F3N 12:54 → F3E 08-06 13:13
PROVIDERS: ADMIT Surgery; ATTEND Surgery
PROC: 0B9P3ZZ Drainage of Left Pleura, Percutaneous Approach (ICD-10-PCS; principal; 2017-08-05)
DX: S27.0XXA Traumatic pneumothorax, initial encounter (principal); S22.42XA Multiple fractures of ribs, left side, initial encounter for closed fracture; J96.20 Acute and chronic respiratory failure, unspecified whether with hypoxia or hypercapnia; J44.9 Chronic obstructive pulmonary disease, unspecified; Z99.81 Dependence on supplemental oxygen; J45.909 Unspecified asthma, uncomplicated; I10 Essential (primary) hypertension; F17.210 Nicotine dependence, cigarettes, uncomplicated; W01.198A Fall on same level from slipping, tripping and stumbling with subsequent striking against other object, initial encounter; Y92.017 Garden or yard in single-family (private) house as the place of occurrence of the external cause; Y93.E8 Activity, other personal hygiene; F12.90 Cannabis use, unspecified, uncomplicated; Z72.89 Other problems related to lifestyle; Z87.81 Personal history of (healed) traumatic fracture; E87.1 Hypo-osmolality and hyponatremia
CPT/HCPCS: 92507-GN; 92523-GN; 96374; 97116-GP; 97161-GP; 97165-GO; 97530-GP; 97535-GO; G0480; J2405; J3010